=== PATIENT | male | born 1950 | race Hispanic/Latino ===

== ENCOUNTER 2023-08-13 15:17 | Emergency (ER) | payer OTHER ==
--- OUTSIDE RECORDS SUMMARY | 2023-08-13 15:23 | XMS REPORT | Continuity of Care Document ---
:1950 Author Organization Formerly [facility] t Address [address] [place] [address] [place] [id number] Care Team Providers Name Role Phone Evita Teixeira Primary Care Physician [phone] Problems This patient has no known problems. Allergies, Adverse Reactions, Alerts This patient has no known allergies or adverse reactions. Medications Ordered Filled Start Stop Current Ordering Indication Dosage Frequency Signature Comments Components Source Medication Medication Date Date Medication? Clinician (SIG) Name Name Dose 2022-0 No Unknown 1-16 00:00: 00 TAKE 1 2022-0 No 10 TABLET 3 1-16 TIMES DAILY 00:00: NEEDED. 00 IBUPROFEN 2022-0 No 800 MG TABS 1-16 00:00: 00 Dose 2021-0 No Unknown 8-03 00:00: 00 Dose 2021-0 No Unknown 8-03 00:00: 00 Dose 2022-0 No Unknown 8-03 00:00: 00 Dose 2-0 No Unknown 8-03 00:00: 00 Dose 2022-0 No Unknown 8-03 00:00: 00 Dose 2022-0 No Unknown 8-03 00:00: 00 TAKE 1 2021-0 No 10 TABLET 3 7-26 TIMES DAILY 00:00: NEEDED. 00 Dose 2021-0 No Unknown 05-29 00:00: 00 TAKE 1 2021-0 No 10 TABLET 3 7-26 TIMES DAILY 00:00: NEEDED. 00 Dose 2021-0 No Unknown 05-29 00:00: 00 TAKE 1 2021-0 No 10 TABLET 3 7-26 TIMES DAILY 00:00: NEEDED. 00 Dose 2021-0 No Unknown 05-29 00:00: 00 TAKE 1 2021-0 No 800 TABLET 3 7-19 TIMES DAILY 00:00: WITH FOOD 00 NEEDED. TAKE 1 2-0 No 800 TABLET 3 7-19 TIMES DAILY 00:00: WITH FOOD 00 NEEDED. TAKE 1 2-0 No 800 TABLET 3 7-19 TIMES DAILY 00:00: WITH FOOD 00 NEEDED. TAKE 1 2-0 No 10 TABLET 3 7-19 TIMES DAILY 00:00: NEEDED. 00 TAKE 1 2-0 No 800 TABLET 3 7-19 TIMES DAILY 00:00: WITH FOOD 00 NEEDED. TAKE 1 2-0 No 800 TABLET 3 7-19 TIMES DAILY 00:00: WITH FOOD 00 NEEDED. TAKE 1 2-0 No 10 TABLET 3 7-19 TIMES DAILY 00:00: NEEDED. 00 Dose 2021-0 No Unknown 05-22 00:00: 00 TAKE 1 2-0 No 10 TABLET 3 7-19 TIMES DAILY 00:00: NEEDED. 00 TAKE 1 2021-0 No 800 TABLET 3 7-19 TIMES DAILY 00:00: WITH FOOD 00 NEEDED. TAKE 1 2021-0 No 10 TABLET 3 7-19 TIMES DAILY 00:00: NEEDED. 00 Dose 2021-0 No Unknown 19 00:00: 00 TAKE 1 2021-0 No 800 TABLET 3 7-19 TIMES DAILY 00:00: WITH FOOD 00 NEEDED. TAKE 1 2021-0 No 800 TABLET 3 7-19 TIMES DAILY 00:00: WITH FOOD 00 NEEDED. TAKE 1 2-0 No 10 TABLET 3 7-19 TIMES DAILY 00:00: NEEDED. 00 TAKE 1 2-0 No 800 TABLET 3 7-19 TIMES DAILY 00:00: WITH FOOD 00 NEEDED. TAKE 1 2021-0 No 10 TABLET 3 7-19 TIMES DAILY 00:00: NEEDED. 00 Dose 2-0 No Unknown 05-22 00:00: 00 Dose 2022-0 No Unknown 05-01 00:00: 00 Dose 2022-0 No Unknown 05-01 00:00: 00 Dose 2022-0 No Unknown 05-01 00:00: 00 Dose 2022-0 No Unknown 05-01 00:00: 00 Dose 2022-0 No Unknown 05-01 00:00: 00 Dose 2022-0 No Unknown 05-01 00:00: 00 rosuvastati 2-0 No 1mg n 20 mg 3-18 tablet 00:00: 00 rosuvastati 2022-0 No 1mg n 20 mg 3-18 tablet 00:00: 00 rosuvastati 2022-0 No 1mg n 20 mg 3-18 tablet 00:00: 00 valacyclovi 2021-0 No 2mg r 500 mg 3-01 tablet 00:00: 00 valacyclovi 2021-0 No 2mg r 500 mg 3-01 tablet 00:00: 00 valacyclovi 2021-0 No 2mg r 500 mg 3-01 tablet 00:00: 00 rosuvastati 2021-0 No 1mg n 20 mg 2-22 tablet 00:00: 00 rosuvastati 2021-0 No 1mg n 20 mg 2-22 tablet 00:00: 00 rosuvastati 2021-0 No 1mg n 20 mg 2-22 tablet 00:00: 00 rosuvastati 2021-0 No 1mg n 20 mg 2-03 tablet 00:00: 00 rosuvastati 2021-0 No 1mg n 20 mg 2-03 tablet 00:00: 00 rosuvastati 2021-0 No 1mg n 20 mg 2-03 tablet 00:00: 00 chlorthalid 2020-0 No 1mg one 25 mg 8-03 tablet 00:00: 00 rosuvastati 2020-0 No 1mg n 20 mg 8-03 tablet 00:00: 00 chlorthalid 2020-0 No 1mg one 25 mg 8-03 tablet 00:00: 00 rosuvastati 2020-0 No 1mg n 20 mg 8-03 tablet 00:00: 00 chlorthalid 2020-0 No 1mg one 25 mg 8-03 tablet 00:00: 00 rosuvastati 2020-0 No 1mg n 20 mg 8-03 tablet 00:00: 00 rosuvastati 2020-0 No 1mg n 20 mg 2-21 tablet 00:00: 00 rosuvastati 2020-0 No 1mg n 20 mg 2-21 tablet 00:00: 00 rosuvastati 2020-0 No 1mg n 20 mg 2-21 tablet 00:00: 00 rosuvastati 2020-0 No 1mg n 20 mg 1-21 tablet 00:00: 00 rosuvastati 2020-0 No 1mg n 20 mg 1-21 tablet 00:00: 00 rosuvastati 2020-0 No 1mg n 20 mg 1-21 tablet 00:00: 00 Zyrtec 10 2018-0 No 1mg mg capsule 11-19 00:00: 00 Zyrtec 10 2018-0 No 1mg mg capsule 11-19 00:00: 00 Zyrtec 10 2018-0 No 1mg mg capsule 11-19 00:00: 00 Vital Signs Vital Name Observation Time Observation Value Comments Source BP Systolic 2022-11-19 10:23:00 169 mm[Hg] BP Diastolic 2022-11-19 10:23:00 84 mm[Hg] Weight Measured 2022-11-19 10:23:00 194.40 pounds Height Measured 2022-11-19 10:23:00 66.34 inches Body Temperature 2022-11-19 10:23:00 98.00 degrees Heart Rate 2022-11-19 10:23:00 87.00 /min Respiratory Rate 2022-11-19 10:23:00 BP Systolic 2022-11-19 10:08:00 169 mm[Hg] BP Diastolic 2022-11-19 10:08:00 84 mm[Hg] Weight Measured 2022-11-19 10:08:00 194.40 pounds Height Measured 2022-11-19 10:08:00 66.34 inches Body Temperature 2022-11-19 10:08:00 98.00 degrees Heart Rate 2022-11-19 10:08:00 87.00 /min Respiratory Rate 2022-11-19 10:08:00 BP Systolic 2022-06-05 17:13:00 156 mm[Hg] BP Diastolic 2022-06-05 17:13:00 90 mm[Hg] Weight Measured 2022-06-05 17:13:00 192.20 pounds Height Measured 2022-06-05 17:13:00 66.34 inches Body Temperature 2022-06-05 17:13:00 98.30 degrees Heart Rate 2022-06-05 17:13:00 86.00 /min Respiratory Rate 2022-06-05 17:13:00 18.00 /min BP Systolic 2022-05-01 15:35:00 173 mm[Hg] BP Diastolic 2022-05-01 15:35:00 91 mm[Hg] Weight Measured 2022-05-01 15:35:00 192.60 pounds Height Measured 2022-05-01 15:35:00 66.34 inches Body Temperature 2022-05-01 15:35:00 98.00 degrees Heart Rate 2022-05-01 15:35:00 83.00 /min Respiratory Rate 2022-05-01 15:35:00 18.00 /min BP Systolic 2021-12-11 11:18:00 150 mm[Hg] BP Diastolic 2021-12-11 11:18:00 80 mm[Hg] Weight Measured 2021-12-11 11:18:00 188.60 pounds Height Measured 2021-12-11 11:18:00 66.34 inches Body Temperature 2021-12-11 11:18:00 98.00 degrees Heart Rate 2021-12-11 11:18:00 85.00 /min Respiratory Rate 2021-12-11 11:18:00 16.00 /min BP Systolic 2021-06-09 12:14:00 149 mm[Hg] BP Diastolic 2021-06-09 12:14:00 71 mm[Hg] Weight Measured 2021-06-09 12:14:00 17.60 pounds Height Measured 2021-06-09 12:14:00 66.34 inches Body Temperature 2021-06-09 12:14:00 98.60 degrees Heart Rate 2021-06-09 12:14:00 89.00 /min Respiratory Rate 2021-06-09 12:14:00 18.00 /min BP Systolic 2021-06-09 09:11:00 149 mm[Hg] BP Diastolic 2021-06-09 09:11:00 71 mm[Hg] Weight Measured 2021-06-09 09:11:00 187.60 pounds Height Measured 2021-06-09 09:11:00 66.34 inches Body Temperature 2021-06-09 09:11:00 98.60 degrees Heart Rate 2021-06-09 09:11:00 89.00 /min Respiratory Rate 2021-06-09 09:11:00 18.00 /min BP Systolic 2021-01-02 17:17:00 170 mm[Hg] BP Diastolic 2021-01-02 17:17:00 89 mm[Hg] Weight Measured 2021-01-02 17:17:00 195.80 pounds Height Measured 2021-01-02 17:17:00 66.34 inches Body Temperature 2021-01-02 17:17:00 98.60 degrees Heart Rate 2021-01-02 17:17:00 79.00 /min Respiratory Rate 2021-01-02 17:17:00 17.00 /min BP Diastolic 2020-12-26 14:22:00 85 mm[Hg] Weight Measured 2020-12-26 14:22:00 194.40 pounds Height Measured 2020-12-26 14:22:00 66.34 inches Body Temperature 2020-12-26 14:22:00 98.90 degrees Heart Rate 2020-12-26 14:22:00 92.00 /min Respiratory Rate 2020-12-26 14:22:00 18.00 /min BP Systolic 2020-12-26 14:22:00 149 mm[Hg] BP Systolic 2020-12-12 14:19:00 156 mm[Hg] BP Diastolic 2020-12-12 14:19:00 90 mm[Hg] Weight Measured 2020-12-12 14:19:00 198.00 pounds Height Measured 2020-12-12 14:19:00 66.34 inches Body Temperature 2020-12-12 14:19:00 97.90 degrees Heart Rate 2020-12-12 14:19:00 87.00 /min Respiratory Rate 2020-12-12 14:19:00 15.00 /min BP Systolic 2020-06-06 09:09:00 158 mm[Hg] BP Diastolic 2020-06-06 09:09:00 91 mm[Hg] Weight Measured 2020-06-06 09:09:00 193.40 pounds Height Measured 2020-06-06 09:09:00 66.34 inches Body Temperature 2020-06-06 09:09:00 98.40 degrees Heart Rate 2020-06-06 09:09:00 88.00 /min Respiratory Rate 2020-06-06 09:09:00 16.00 /min Procedures This patient has no known procedures. Plan of Care Planned Activity Planned Date Details Comments Source Goal Plan of Care Note [code = 05451-7] Goal Plan of Care Note [code = 22949-6] Goal Plan of Care Note [code = 57721-9] Goal Plan of Care Note [code = 04600-3] Goal Plan of Care Note [code = 58502-7] Goal Plan of Care Note [code = 90466-8] Goal Plan of Care Note [code = 58834-3] Goal Plan of Care Note [code = 98056-2] Goal Plan of Care Note [code = 50110-2] Goal Plan of Care Note [code = 42364-7] Goal Plan of Care Note [code = 53287-7] Goal Plan of Care Note [code = 18051-1] Goal Plan of Care Note [code = 05471-5] Goal Plan of Care Note [code = 39463-8] Goal Plan of Care Note [code = 34404-6] Goal Plan of Care Note [code = 08167-9] Goal Plan of Care Note [code = 62628-2] Goal Plan of Care Note [code = 01782-3] Goal Plan of Care Note [code = 88636-6] Goal Plan of Care Note [code = 36093-3] Goal Plan of Care Note [code = 75937-1] Goal Plan of Care Note [code = 77869-4] Goal Plan of Care Note [code = 40156-9] Goal Plan of Care Note [code = 27160-0] Goal Plan of Care Note [code = 12612-0] Goal Plan of Care Note [code = 01414-4] Goal Plan of Care Note [code = 67060-8] Goal Plan of Care Note [code = 11338-6] Goal Plan of Care Note [code = 79844-7] Goal Plan of Care Note [code = 39287-8] Goal Plan of Care Note [code = 85408-7] Goal Plan of Care Note [code = 78790-9] Goal Plan of Care Note [code = 05839-6] Goal Plan of Care Note [code = 92827-7] Goal Plan of Care Note [code = 34336-5] Goal Plan of Care Note [code = 06542-3] Goal Plan of Care Note [code = 39210-6] Goal Plan of Care Note [code = 11317-3] Goal Plan of Care Note [code = 18468-1] Goal Plan of Care Note [code = 87920-2] Goal Plan of Care Note [code = 60659-6] Goal Plan of Care Note [code = 64060-4] Encounters Start End Encounter Admission Attending Care Care Encounter Source Date/Time Date/Time Type Type Clinicians Facility Department ID 2023-07-31 2023-07-31 Outpatient SFA SFA [id number] [facility] 11:36:53 11:36:53 0927 [facility] 2023-07-24 2023-07-24 Outpatient SFA SFA [id number] [facility] 08:30:30 08:30:30 09 [facility] [place] 2023-07-22 2023-07-22 Outpatient SFA SFA [id number] [facility] 13:57:17 13:57:17 0918 [facility] [place] 2023-05-16 2023-05-16 Outpatient SFA SFA [id number] [facility] 09:38:02 09:38:02 0713 [facility] 2023-04-25 2023-04-25 Outpatient SFA SFA [id number] [facility] 08:45:13 08:45:13 06 [facility] 2023-04-18 2023-04-18 Outpatient SFA SFA [id number] [facility] 08:04:13 08:04:13 0615 [facility] 2023-04-17 2023-04-17 Outpatient SFA SFA [id number] [facility] 11:16:20 11:16:20 0614 [facility] 2023-04-08 2023-04-08 Outpatient SFA SFA [id number] [facility] 10:52:03 10:52:03 0605 [facility] 2023-04-02 2023-04-02 Outpatient SFA SFA [id number] [facility] 08:12:50 08:12:50 05 [facility] 2023-03-26 2023-03-26 Outpatient SFA SFA [id number] [facility] 15:18:45 15:18:45 0523 [facility] 2023-02-25 2023-02-25 Outpatient SFA SFA [id number] [facility] 11:14:30 11:14:30 0424 [facility] 2022-12-31 2022-12-31 Outpatient SFA SFA [id number] [facility] 08:10:12 08:10:12 7 [facility] 2022-11-26 2022-11-26 Outpatient SFA SFA [id number] [facility] 09:44:23 09:44:23 0123 [place] 2022-11-19 2022-11-19 Outpatient SFA SFA [id number] [facility] 10:00:42 10:00:42 0116 [facility] [place] 2022-11-19 2022-11-19 Outpatient [id number] 00:00:00 00:00:00 Visit 56ba-4ffa [id number]-4ffa-a -[id number]-1ab [id number] 071aaf 2022-06-05 2022-06-05 Outpatient [id number] 00:00:00 00:00:00 Visit 83k9-1oh0 [id number] -[id number] [id number] 2022-05-01 2022-05-01 Outpatient [id number] 00:00:00 00:00:00 Visit [id number]-a -[id number] 112-3fec2d [id number] Results Test Description Test Time Test Comments Results Result Comments Source UREA NITROGEN, URINE, 24 HR 2023-07-26 17:49:26 Test Item Value Reference Range Interpretation Comme nts UREA NITROGEN, CONC. (test 529 mg/dL code = 25579) UREA NITROGEN, 24 HR (test 8.2 g/d 12.0-20.0 L code = 87521) CREATININE, URINE, CONC. (test 64 mg/dL code = 09079) CREATININE, URINE, 24 HR (test 992 mg/d 800-2100 code = 02584) HOURS OF COLLECTION (test code 24 = 21788) TOTAL URINE VOLUME (test code 1550 TESTING PERFORMED AT [facility] = [address]) [facility], [address] [place]. [id number] CLIA NO. [id number] UNLESS OTHERWISE INDIC ATED, ALL TESTING PERFORMED AT [facility], [facility]. [address] [place] [address] 4 SUBSTATION OPERATOR HELPER: FRANK ESTEBAN M.D. CLIA NUMBER [id number] [place] ACCREDITATION N O. [id number] VITAMIN D, 25 [id number] 10:38:18 Test Item Value Reference Range Interpretation Comments VITAMIN D, 25 34 NG/ML SEE BELOW EFFECTIVE 11/12/2022, [place] (test code PLEASE NOTE NE W METHODOLOGY = 4958) IS ELECTROC EMILUMINESCENCE BINDING ASSAY. NOTE: 25-HYDROXYVITAM IN D ASSAY INCLUDES 25-HYD ROXYVITAMIN D2 AND D3. I NTERPRETIVE RANGES PED IATRIC (<17 YEARS) . . . . . . . . . . . NG/ML 20-100ADU LT: INSUFFICIENT . . . . . . . . . . . . . . NG/ML <20 SUBOP TIMAL . . . . . . . . . . . . . . . NG/ML 20-29 OPTIMAL . . . . . . . . . . . . . . . . . NG/ML 30-100 TSH, THIRD [id number] 09:42:22 Test Item Value Reference Range Interpretation Comments TSH, THIRD GENERATION (test code 1.980 UIU/ML 0.400-4.100 = 2821) INTACT [id number] 06:41:20 Test Item Value Reference Range Interpretation Comments INTACT PTH (test 61 PG/ML 15-65 UNLESS OTH ERWISE code = 5005) INDICATED, ALL TESTING PERFORMED AT [facility] [address] [place] [address] DIRECTOR: Gurvinder AYOUB KIANA NUMBER [id number] [facility] ACCREDITATION N O. [id number] COMPREHENSIVE METABOLIC [id number] 04:01:27 Test Item Value Reference Range Interpretation Comments GLUCOSE (test code = 115 MG/DL 70-99 H 2216) BUN (test code = 15 MG/DL 8-23 2207) CREATININE (test 0.88 MG/DL 0.80-1.40 code = 2214) eGFR (2020 CKD-EPI) 93 ML/MIN/1.73 >60 (test code = 64784) CALC BUN/CREAT (test 17 RATIO 6-28 code = 2235) SODIUM (test code = 142 MEQ/L 049-635 9416) POTASSIUM (test code 4.6 MEQ/L 3.5-5.4 = 2228) CHLORIDE (test code 105 MEQ/L 95-107 = 2215) CARBON DIOXIDE (test 23 MEQ/L 19-31 code = 2206) CALCIUM (test code = 9.9 MG/DL 8.5-10.5 2208) PROTEIN, TOTAL (test 7.2 G/DL 6.1-8.3 code = 2229) ALBUMIN (test code = 4.8 G/DL 3.5-5.2 2200) CALC GLOBULIN (test 2.4 G/DL 1.9-3.7 code = 2240) CALC A/G RATIO (test 2.0 RATIO 1.0-2.6 code = 2234) BILIRUBIN, TOTAL 1.4 MG/DL See_Comment H [Automated message] (test code = 220) The syste m which generated this result transmit amos reference range : <=1.2. The refe rence range was not u sed to interpret th is result as normal/abnormal . ALKALINE PHOSPHATASE 457 U/L 40-125 H (test code = 2203) AST (test code = 18 U/L 9-50 2217) ALT (test code = 20 U/L 5-50 2218) [id number] 03:41:22 Test Item Value Reference Range Interpretation Comments GGT (test code = 22 U/L <60 UNLESS OTH ERWISE INDICATED, 2216) ALL TESTING PER FORMED AT CLINICAL [facility], [place] [address] LABORATORY DIRE CTOR: LETICIA BOND M.D. CLIA NUMBER [id number] [place] ACCREDITATION N O. [id number] HEPATITIS PANEL, [id number] 06:51:28 Test Item Value Reference Interpretation Comments Range HEPATITIS A TOTAL REACTIVE NON-REACTIVE A AB (test code = 2725) HEPATITIS B SURF AG NON-REACTIVE NON-REACTIVE (test code = 2739) HEP B CORE TOTAL AB NON-REACTIVE NON-REACTIVE (test code = 2729) HEPATITIS B SURFACE NON-REACTIVE NON-REACTIVE AB (test code = 2737) HEPATITIS C NON-REACTIVE NON-REACTIVE ANTIBODY (test code = 4675) INTERPRETATION (NOTE) Hepatitis A serology HEPATITIS A: (test consisten t with past code = 8162) exposure or previousvaccina tion to hepatitis A vir us. No evidence of cur rent acutehepatitis A infection. INTERPRETATION (NOTE) Hepatitis B serology HEPATITIS B: (test shows no evidence of code = 99948) past exposure to orcurrent infec tion with hepatitis B vir us. No evidence of hep atitis Bimmunization i s identified. INTERPRETATION (NOTE) Hepatitis C serology HEPATITIS C: (test shows no evidence of code = 49266) exposure to he patitisC virus at this t ursz[place]. It can take up to 12 months after exposure tothe hepatitis C vir us for antibodies to b ecome detectable in t he blood in certain vilma ents. HEPATITIS A [id number] 06:51:28 Test Item Value Reference Range Interpretation Comments HEPATITIS A IgM NON-REACTIVE NON-REACTIVE UNLESS OTHE RWISE (test code = 2728) INDICATED , ALL TESTING PERFORMED AT [facility], [facility]. [address] [place] [address] [employer] DIRECTOR: Gurvinder AYOUB KIANA NUMBER [id number] [place] ACCREDITATION N O. [id number] LIPID [id number] 03:45:26 Test Item Value Reference Range Interpretation Comments CHOLESTEROL (test 160 MG/DL <200 code = 2210) TRIGLYCERIDES (test 212 MG/DL <150 H code = 2232) HDL CHOLESTEROL (test 47 MG/DL >39 code = 2220) CALC LDL CHOL (test 82 MG/DL <100 NOTE: C ALCULATED LDL code = 2237) IS BASED ON VU-HENLEY METHOD WHICHINCLUDES ADJUSTABLE TRIGLYCERIDE:VL DL CHOLESTEROL RAT IO.THIS FACTOR VARIES B Y MEASURED TRIGLY CERIDE AND NON-HDLCHOL ESTEROL CONCENTRATIONS WITH INCREASED CALCU LATED LDL SEENIN HIGH ER TRIGLYCERIDE OR LOWER NON-HDL SPECIME NS. FOR MOREINFORMATION , SEE CLIENT ANNOUNCE MENT AT [email or web address] [email or web address] RATIO LDL/HDL 1.74 RATIO <3.55 (test code = 2238) COMPREHENSIVE METABOLIC [id number] 03:45:26 Test Item Value Reference Range Interpretation Comments GLUCOSE (test code = 112 MG/DL 70-99 H 2216) BUN (test code = 13 MG/DL 8-23 2207) CREATININE (test 0.84 MG/DL 0.80-1.40 code = 2214) eGFR (2020 CKD-EPI) 94 ML/MIN/1.73 >60 (test code = 56776) CALC BUN/CREAT (test 15 RATIO 6-28 code = 223) SODIUM (test code = 141 MEQ/L 390-135 2480) POTASSIUM (test code 4.6 MEQ/L 3.5-5.4 = 2227) CHLORIDE (test code 101 MEQ/L 95-107 = 2214) CARBON DIOXIDE (test 27 MEQ/L 19-31 code = 2205) CALCIUM (test code = 9.7 MG/DL 8.5-10.5 2208) PROTEIN, TOTAL (test 7.3 G/DL 6.1-8.3 code = 2228) ALBUMIN (test code = 5.0 G/DL 3.5-5.2 2200) CALC GLOBULIN (test 2.3 G/DL 1.9-3.7 code = 2239) CALC A/G RATIO (test 2.2 RATIO 1.0-2.6 code = 2233) BILIRUBIN, TOTAL 1.1 MG/DL See_Comment [Automated message] (test code = 2206) The [employer] which generated this result transmit amos reference range : <=1.2. The refe rence range was not u sed to interpret th is result as normal/abnormal . ALKALINE PHOSPHATASE 450 U/L 40-125 H (test code = 2203) AST (test code = 19 U/L 9-50 2217) ALT (test code = 28 U/L 5-50 2218) HEMOGLOBIN [id number] 02:31:40 Test Item Value Reference Range Interpretation Comments HEMOGLOBIN A1c (test 6.2 % 4.2-5.6 H AMERIC AN DIABETES code = 49119) ASSOCIATION IDELINES FOR HGB A1C: PREDIABETES/INC REASED RISK . . . . . . . 5.7 -6.4% DIAGNOSIS OF DI ABETES . . . . . . . . . >=6 .5% WITH CONFIRMATION OR APPROPRIATE SYMPTOMS NOTE: ASSAY MAY BE AFFECTED BY HEMOGLOBINOPATH IES (SICKLE CELL ANEMIA, S- C DISEASE, OTHERS) OR JACEK FICIALLY LOWERED BY DECR EASED RED CELL SURVIVAL ( HEMOLYTIC ANEMIAS, BLOOD LOSS, ETC.). CONSIDER ALTERN ATE TESTING OR LABORATORY C ONSULTATION. CBC W/AUTO DIFF WITH [id number] 02:20:58 Test Item Value Reference Range Interpretation Comments WBC (test code = 5.1 K/UL 3.5-11.0 1001) RBC (test code = 4.84 M/UL 4.50-6.10 1002) HEMOGLOBIN (test code 14.5 G/DL 13.5-17.0 = 1003) HEMATOCRIT (test code 42.5 % 40.0-51.0 = 1004) MCV (test code = 87.8 fL 80.0-99.0 1005) MCH (test code = 30.0 PG 25.0-33.0 1006) MCHC (test code = 34.1 G/DL 31.0-36.0 1007) RDW (test code = 13.7 % 11.5-15.0 1038) NEUTROPHILS (test 50.7 % code = 1008) LYMPHOCYTES (test 37.2 % code = 1010) MONOCYTES (test code 7.9 % = 1011) EOSINOPHILS (test 2.8 % code = 1012) BASOPHILS (test code 1.0 % = 1013) IMMATURE GRANULOCYTES 0.4 % (test code = 1036) NUCLEATED RBCS (test 0.0 /100 WBC'S See_Comment [Aut omated code = 1065) message] The sy stem which generated this result transmitted reference range : 0.0. The refere nce range was not u sed to interpret th is result as normal/abnormal . PLATELET COUNT (test 262 K/UL 130-400 code = 1015) ABSOLUTE NEUTROPHILS 2.58 K/UL 1.50-7.50 (test code = 1066) ABSOLUTE LYMPHOCYTES 1.89 K/UL 1.00-4.00 (test code = 1067) ABSOLUTE MONOCYTES 0.40 K/UL 0.20-1.00 (test code = 1068) ABSOLUTE EOSINOPHILS 0.14 K/UL 0.00-0.50 (test code = 1040) ABSOLUTE BASOPHILS 0.05 K/UL 0.00-0.20 (test code = 1069) ABS IMMATURE 0.02 K/UL 0.00-0.10 GRANULOCYTES (test code = 1020) ABS NUCLEATED RBCS 0.00 K/UL 0.00-0.11 (test code = 24017) LIPID [id number] 04:59:38 Test Item Value Reference Range Interpretation Comments CHOLESTEROL (test 150 MG/DL <200 code = 2210) TRIGLYCERIDES (test 143 MG/DL <150 code = 2232) HDL CHOLESTEROL (test 47 MG/DL >39 code = 2220) CALC LDL CHOL (test 79 MG/DL <100 NOTE: C ALCULATED LDL code = 2237) IS BASED ON VU-HENLEY METHOD WHICHINCLUDES ADJUSTABLE TRIGLYCERIDE:VL DL CHOLESTEROL RAT IO.THIS FACTOR VARIES B Y MEASURED TRIGLY CERIDE AND NON-HDLCHOL ESTEROL CONCENTRATIONS WITH INCREASED CALCU LATED LDL SEENIN HIGH ER TRIGLYCERIDE OR LOWER NON-HDL SPECIME NS. FOR MOREINFORMATION , SEE CLIENT ANNOUNCE MENT AT [email or web address] RISK RATIO LDL/HDL 1.68 RATIO <3.55 UNLESS O THERWISE (test code = 2238) INDICATED , ALL TESTING PERFORMED [facility], [facility]. [address] [place] [id number] [facility] DIRECTOR: JANNIE GARCIA M.D. CLIA NUMBER [id number] CAP ACCREDITATION N O. [id number] HEMOGLOBIN [id number] 04:35:04 Test Item Value Reference Range Interpretation Comments HEMOGLOBIN A1c (test code = 81077) 6.0 % 4.2-5.6 H HEMOGLOBIN A1c [ADDED]2022-06-07 00:00:00 Test Item Value Reference Range Interpretation Comments HEMOGLOBIN A1c (test code = 88476) 6.0 % LIPID PANEL [ADDED]2022-06-07 00:00:00 Test Item Value Reference Range Interpretation Comments CHOLESTEROL (test code = 2210) 150 MG/DL TRIGLYCERIDES (test code = 2232) 143 MG/DL HDL CHOLESTEROL (test code = 2220) 47 MG/DL CALC LDL CHOL (test code = 2237) 79 MG/DL RISK RATIO LDL/HDL (test code = 1.68 RATIO 2238) LIPID PANEL [ADDED]2022-06-07 00:00:00 Test Item Value Reference Range Interpretation Comments CHOLESTEROL (test code = 2210) 150 MG/DL TRIGLYCERIDES (test code = 2232) 143 MG/DL HDL CHOLESTEROL (test code = 2220) 47 MG/DL CALC LDL CHOL (test code = 2237) 79 MG/DL RISK RATIO LDL/HDL (test code = 1.68 RATIO 2238) HEMOGLOBIN A1c [ADDED]2022-06-07 00:00:00 Test Item Value Reference Range Interpretation Comments HEMOGLOBIN A1c (test code = 06089) 6.0 % HEMOGLOBIN A1c [ADDED]2022-06-07 00:00:00 Test Item Value Reference Range Interpretation Comments HEMOGLOBIN A1c (test code = 37926) 6.0 % HEMOGLOBIN A1c [ADDED]2022-06-07 00:00:00 Test Item Value Reference Range Interpretation Comments HEMOGLOBIN A1c (test code = 97436) 6.0 % LIPID PANEL [ADDED]2022-06-07 00:00:00 Test Item Value Reference Range Interpretation Comments CHOLESTEROL (test code = 2210) 150 MG/DL TRIGLYCERIDES (test code = 2232) 143 MG/DL HDL CHOLESTEROL (test code = 2220) 47 MG/DL CALC LDL CHOL (test code = 2237) 79 MG/DL RISK RATIO LDL/HDL (test code = 1.68 RATIO 2238) LIPID PANEL [ADDED]2022-06-07 00:00:00 Test Item Value Reference Range Interpretation Comments CHOLESTEROL (test code = 2210) 150 MG/DL TRIGLYCERIDES (test code = 2232) 143 MG/DL HDL CHOLESTEROL (test code = 2220) 47 MG/DL CALC LDL CHOL (test code = 2237) 79 MG/DL RISK RATIO LDL/HDL (test code = 1.68 RATIO 2238) HEMOGLOBIN A1c [ADDED]2022-06-07 00:00:00 Test Item Value Reference Range Interpretation Comments HEMOGLOBIN A1c (test code = 80447) 6.0 % HEMOGLOBIN A1c [ADDED]2022-06-07 00:00:00 Test Item Value Reference Range Interpretation Comments HEMOGLOBIN A1c (test code = 43195) 6.0 % COMPREHENSIVE METABOLIC [id number] 07:38:44 Test Item Value Reference Range Interpretation Comments GLUCOSE (test code = 99 MG/DL 70-99 2216) BUN (test code = 18 MG/DL 8-23 2207) CREATININE (test 0.96 MG/DL 0.80-1.40 code = 2214) eGFR (2020 CKD-EPI) 86 ML/MIN/1.73 >60 (test code = 04081) CALC BUN/CREAT (test 19 RATIO 6-28 code = 2235) SODIUM (test code = 143 MEQ/L 059-063 7731) POTASSIUM (test code 4.5 MEQ/L 3.5-5.4 = 2228) CHLORIDE (test code 102 MEQ/L 95-107 = 2215) CARBON DIOXIDE (test 24 MEQ/L 19-31 code = 2206) CALCIUM (test code = 9.5 MG/DL 8.5-10.5 2208) PROTEIN, TOTAL (test 7.4 G/DL 6.1-8.3 code = 2229) ALBUMIN (test code = 5.0 G/DL 3.5-5.2 2200) CALC GLOBULIN (test 2.4 G/DL 1.9-3.7 code = 2240) CALC A/G RATIO (test 2.1 RATIO 1.0-2.6 code = 2234) BILIRUBIN, TOTAL 1.4 MG/DL See_Comment H [Automated message] (test code = 220) The syste m which generated this result transmit amos reference range : <=1.2. The refe rence range was not u sed to interpret th is result as normal/abnormal . ALKALINE PHOSPHATASE 190 U/L 40-125 H (test code = 220) AST (test code = 19 U/L 9-50 2217) ALT (test code = 34 U/L 5-50 2218) LIPID [id number] 07:38:44 Test Item Value Reference Range Interpretation Comments CHOLESTEROL (test 146 MG/DL <200 code = 2210) TRIGLYCERIDES (test 232 MG/DL <150 H code = 2232) HDL CHOLESTEROL (test 43 MG/DL >39 code = 2220) CALC LDL CHOL (test 71 MG/DL <100 NOTE: C ALCULATED LDL code = 2237) IS BASED ON VU-HENLEY METHOD WHICHINCLUDES ADJUSTABLE TRIGLYCERIDE:VL DL CHOLESTEROL RAT IO.THIS FACTOR VARIES B Y MEASURED TRIGLY CERIDE AND NON-HDLCHOL ESTEROL CONCENTRATIONS WITH INCREASED CALCU LATED LDL SEENIN HIGH ER TRIGLYCERIDE OR LOWER NON-HDL SPECIME NS. FOR MOREINFORMATION , SEE CLIENT ANNOUNCE MENT AT [email or web address] [email or web address] RATIO LDL/HDL 1.65 RATIO <3.55 UNLESS O THERWISE (test code = 223) INDICATED , ALL TESTING PERFORMED [facility], [address] [place] [address] [facility] DIRECTOR: JANNIE GARCIA M.D. CLIA NUMBER [id number] CAP ACCREDITATION N O. [id number] HEMOGLOBIN [id number] 05:38:37 Test Item Value Reference Range Interpretation Comments HEMOGLOBIN A1c (test code = 56303) 6.0 % 4.2-5.6 H CBC W/AUTO DIFF WITH [id number] 05:08:46 Test Item Value Reference Range Interpretation Comments WBC (test code = 6.3 K/UL 3.5-11.0 1001) RBC (test code = 4.77 M/UL 4.50-6.10 1002) HEMOGLOBIN (test code 14.5 G/DL 13.5-17.0 = 1003) HEMATOCRIT (test code 42.0 % 40.0-51.0 = 1004) MCV (test code = 88.1 fL 80.0-99.0 1005) MCH (test code = 30.4 PG 25.0-33.0 1006) MCHC (test code = 34.5 G/DL 31.0-36.0 1007) RDW (test code = 13.5 % 11.5-15.0 1038) NEUTROPHILS (test 55.3 % code = 1008) LYMPHOCYTES (test 34.0 % code = 1010) MONOCYTES (test code 8.1 % = 1011) EOSINOPHILS (test 1.7 % code = 1012) BASOPHILS (test code 0.6 % = 1013) IMMATURE GRANULOCYTES 0.3 % (test code = 1036) NUCLEATED RBCS (test 0.0 /100 WBC'S See_Comment [Aut omated code = 1065) message] The sy stem which generated this result transmitted reference range : 0.0. The refere nce range was not u sed to interpret th is result as normal/abnormal . PLATELET COUNT (test 226 K/UL 130-400 code = 1015) ABSOLUTE NEUTROPHILS 3.49 K/UL 1.50-7.50 (test code = 1066) ABSOLUTE LYMPHOCYTES 2.15 K/UL 1.00-4.00 (test code = 1067) ABSOLUTE MONOCYTES 0.51 K/UL 0.20-1.00 (test code = 1068) ABSOLUTE EOSINOPHILS 0.11 K/UL 0.00-0.50 (test code = 1040) ABSOLUTE BASOPHILS 0.04 K/UL 0.00-0.20 (test code = 1069) ABS IMMATURE 0.02 K/UL 0.00-0.10 GRANULOCYTES (test code = 1020) ABS NUCLEATED RBCS 0.00 K/UL 0.00-0.11 (test code = 46011) CBC W/AUTO [id number] 00:00:00 Test Item Value Reference Range Interpretation Comments WBC (test code = 1001) 6.3 K/UL RBC (test code = 1002) 4.77 M/UL HEMOGLOBIN (test code = 1003) 14.5 G/DL HEMATOCRIT (test code = 1004) 42.0 % MCV (test code = 1005) 88.1 fL MCH (test code = 1006) 30.4 PG MCHC (test code = 1007) 34.5 G/DL RDW (test code = 1038) 13.5 % NEUTROPHILS (test code = 1008) 55.3 % LYMPHOCYTES (test code = 1010) 34.0 % MONOCYTES (test code = 1011) 8.1 % EOSINOPHILS (test code = 1012) 1.7 % BASOPHILS (test code = 1013) 0.6 % IMMATURE GRANULOCYTES (test 0.3 % code = 1036) NUCLEATED RBCS (test code = 0.0 /100WBC'S 1065) PLATELET COUNT (test code = 226 K/UL 1015) ABSOLUTE NEUTROPHILS (test code 3.49 K/UL = 1066) ABSOLUTE LYMPHOCYTES (test code 2.15 K/UL = 1067) ABSOLUTE MONOCYTES (test code = 0.51 K/UL 1068) ABSOLUTE EOSINOPHILS (test code 0.11 K/UL = 1040) ABSOLUTE BASOPHILS (test code = 0.04 K/UL 1069) ABS IMMATURE GRANULOCYTES (test 0.02 K/UL code = 1020) ABS NUCLEATED RBCS (test code = 0.00 K/UL 46335) COMPREHENSIVE METABOLIC [id number] 00:00:00 Test Item Value Reference Range Interpretation Comments GLUCOSE (test code = 2217) 99 MG/DL BUN (test code = 2208) 18 MG/DL CREATININE (test code = 2214) 0.96 MG/DL eGFR (2020 CKD-EPI) (test code 86 ML/MIN/1.73 = 71358) CALC BUN/CREAT (test code = 19 RATIO 2235) SODIUM (test code = 2231) 143 MEQ/L POTASSIUM (test code = 2228) 4.5 MEQ/L CHLORIDE (test code = 2215) 102 MEQ/L CARBON DIOXIDE (test code = 24 MEQ/L 2206) CALCIUM (test code = 2209) 9.5 MG/DL PROTEIN, TOTAL (test code = 7.4 G/DL 2229) ALBUMIN (test code = 2201) 5.0 G/DL CALC GLOBULIN (test code = 2.4 G/DL 2240) CALC A/G RATIO (test code = 2.1 RATIO 2234) BILIRUBIN, TOTAL (test code = 1.4 MG/DL 220) ALKALINE PHOSPHATASE (test 190 U/L code = 2204) AST (test code = 2218) 19 U/L ALT (test code = 2219) 34 U/L COMPREHENSIVE METABOLIC [id number] 00:00:00 Test Item Value Reference Range Interpretation Comments GLUCOSE (test code = 2217) 99 MG/DL BUN (test code = 2208) 18 MG/DL CREATININE (test code = 2214) 0.96 MG/DL eGFR (2020 CKD-EPI) (test code 86 ML/MIN/1.73 = 16853) CALC BUN/CREAT (test code = 19 RATIO 2235) SODIUM (test code = 2231) 143 MEQ/L POTASSIUM (test code = 2228) 4.5 MEQ/L CHLORIDE (test code = 2215) 102 MEQ/L CARBON DIOXIDE (test code = 24 MEQ/L 6) CALCIUM (test code = 2209) 9.5 MG/DL PROTEIN, TOTAL (test code = 7.4 G/DL 2228) ALBUMIN (test code = 2201) 5.0 G/DL CALC GLOBULIN (test code = 2.4 G/DL 2240) CALC A/G RATIO (test code = 2.1 RATIO 2234) BILIRUBIN, TOTAL (test code = 1.4 MG/DL 2207) ALKALINE PHOSPHATASE (test 190 U/L code = 2204) AST (test code = 2218) 19 U/L ALT (test code = 2219) 34 U/L HEMOGLOBIN [id number] 00:00:00 Test Item Value Reference Range Interpretation Comments HEMOGLOBIN A1c (test code = 08472) 6.0 % HEMOGLOBIN [id number] 00:00:00 Test Item Value Reference Range Interpretation Comments HEMOGLOBIN A1c (test code = 57459) 6.0 % HEMOGLOBIN [id number] 00:00:00 Test Item Value Reference Range Interpretation Comments HEMOGLOBIN A1c (test code = 05231) 6.0 % LIPID [id number] 00:00:00 Test Item Value Reference Range Interpretation Comments CHOLESTEROL (test code = 2210) 146 MG/DL TRIGLYCERIDES (test code = 2232) 232 MG/DL HDL CHOLESTEROL (test code = 2220) 43 MG/DL CALC LDL CHOL (test code = 2237) 71 MG/DL RISK RATIO LDL/HDL (test code = 1.65 RATIO 2238) LIPID [id number] 00:00:00 Test Item Value Reference Range Interpretation Comments CHOLESTEROL (test code = 2210) 146 MG/DL TRIGLYCERIDES (test code = 2232) 232 MG/DL HDL CHOLESTEROL (test code = 2220) 43 MG/DL CALC LDL CHOL (test code = 2237) 71 MG/DL RISK RATIO LDL/HDL (test code = 1.65 RATIO 2238) CBC W/AUTO [id number] 00:00:00 Test Item Value Reference Range Interpretation Comments WBC (test code = 1001) 6.3 K/UL RBC (test code = 1002) 4.77 M/UL HEMOGLOBIN (test code = 1003) 14.5 G/DL HEMATOCRIT (test code = 1004) 42.0 % MCV (test code = 1005) 88.1 fL MCH (test code = 1006) 30.4 PG MCHC (test code = 1007) 34.5 G/DL RDW (test code = 1038) 13.5 % NEUTROPHILS (test code = 1008) 55.3 % LYMPHOCYTES (test code = 1010) 34.0 % MONOCYTES (test code = 1011) 8.1 % EOSINOPHILS (test code = 1012) 1.7 % BASOPHILS (test code = 1013) 0.6 % IMMATURE GRANULOCYTES (test 0.3 % code = 1036) NUCLEATED RBCS (test code = 0.0 /100WBC'S 1065) PLATELET COUNT (test code = 226 K/UL 1015) ABSOLUTE NEUTROPHILS (test code 3.49 K/UL = 1066) ABSOLUTE LYMPHOCYTES (test code 2.15 K/UL = 1067) ABSOLUTE MONOCYTES (test code = 0.51 K/UL 1068) ABSOLUTE EOSINOPHILS (test code 0.11 K/UL = 1040) ABSOLUTE BASOPHILS (test code = 0.04 K/UL 1069) ABS IMMATURE GRANULOCYTES (test 0.02 K/UL code = 1020) ABS NUCLEATED RBCS (test code = 0.00 K/UL 80799) CBC W/AUTO [id number] 00:00:00 Test Item Value Reference Range Interpretation Comments WBC (test code = 1001) 6.3 K/UL RBC (test code = 1002) 4.77 M/UL HEMOGLOBIN (test code = 1003) 14.5 G/DL HEMATOCRIT (test code = 1004) 42.0 % MCV (test code = 1005) 88.1 fL MCH (test code = 1006) 30.4 PG MCHC (test code = 1007) 34.5 G/DL RDW (test code = 1038) 13.5 % NEUTROPHILS (test code = 1008) 55.3 % LYMPHOCYTES (test code = 1010) 34.0 % MONOCYTES (test code = 1011) 8.1 % EOSINOPHILS (test code = 1012) 1.7 % BASOPHILS (test code = 1013) 0.6 % IMMATURE GRANULOCYTES (test 0.3 % code = 1036) NUCLEATED RBCS (test code = 0.0 /100WBC'S 1065) PLATELET COUNT (test code = 226 K/UL 1015) ABSOLUTE NEUTROPHILS (test code 3.49 K/UL = 1066) ABSOLUTE LYMPHOCYTES (test code 2.15 K/UL = 1067) ABSOLUTE MONOCYTES (test code = 0.51 K/UL 1068) ABSOLUTE EOSINOPHILS (test code 0.11 K/UL = 1040) ABSOLUTE BASOPHILS (test code = 0.04 K/UL 1069) ABS IMMATURE GRANULOCYTES (test 0.02 K/UL code = 1020) ABS NUCLEATED RBCS (test code = 0.00 K/UL 03413) CBC W/AUTO [id number] 00:00:00 Test Item Value Reference Range Interpretation Comments WBC (test code = 1001) 6.3 K/UL RBC (test code = 1002) 4.77 M/UL HEMOGLOBIN (test code = 1003) 14.5 G/DL HEMATOCRIT (test code = 1004) 42.0 % MCV (test code = 1005) 88.1 fL MCH (test code = 1006) 30.4 PG MCHC (test code = 1007) 34.5 G/DL RDW (test code = 1038) 13.5 % NEUTROPHILS (test code = 1008) 55.3 % LYMPHOCYTES (test code = 1010) 34.0 % MONOCYTES (test code = 1011) 8.1 % EOSINOPHILS (test code = 1012) 1.7 % BASOPHILS (test code = 1013) 0.6 % IMMATURE GRANULOCYTES (test 0.3 % code = 1036) NUCLEATED RBCS (test code = 0.0 /100WBC'S 1065) PLATELET COUNT (test code = 226 K/UL 1015) ABSOLUTE NEUTROPHILS (test code 3.49 K/UL = 1066) ABSOLUTE LYMPHOCYTES (test code 2.15 K/UL = 1067) ABSOLUTE MONOCYTES (test code = 0.51 K/UL 1068) ABSOLUTE EOSINOPHILS (test code 0.11 K/UL = 1040) ABSOLUTE BASOPHILS (test code = 0.04 K/UL 1069) ABS IMMATURE GRANULOCYTES (test 0.02 K/UL code = 1020) ABS NUCLEATED RBCS (test code = 0.00 K/UL 41294) COMPREHENSIVE METABOLIC [id number] 00:00:00 Test Item Value Reference Range Interpretation Comments GLUCOSE (test code = 2217) 99 MG/DL BUN (test code = 2208) 18 MG/DL CREATININE (test code = 2214) 0.96 MG/DL eGFR (2020 CKD-EPI) (test code 86 ML/MIN/1.73 = 81174) CALC BUN/CREAT (test code = 19 RATIO 2235) SODIUM (test code = 2231) 143 MEQ/L POTASSIUM (test code = 2228) 4.5 MEQ/L CHLORIDE (test code = 2215) 102 MEQ/L CARBON DIOXIDE (test code = 24 MEQ/L 2206) CALCIUM (test code = 2209) 9.5 MG/DL PROTEIN, TOTAL (test code = 7.4 G/DL 222) ALBUMIN (test code = 2201) 5.0 G/DL CALC GLOBULIN (test code = 2.4 G/DL 2240) CALC A/G RATIO (test code = 2.1 RATIO 2234) BILIRUBIN, TOTAL (test code = 1.4 MG/DL 220) ALKALINE PHOSPHATASE (test 190 U/L code = 2204) AST (test code = 2218) 19 U/L ALT (test code = 2219) 34 U/L COMPREHENSIVE METABOLIC [id number] 00:00:00 Test Item Value Reference Range Interpretation Comments GLUCOSE (test code = 2217) 99 MG/DL BUN (test code = 2208) 18 MG/DL CREATININE (test code = 2214) 0.96 MG/DL eGFR (2020 CKD-EPI) (test code 86 ML/MIN/1.73 = 39561) CALC BUN/CREAT (test code = 19 RATIO 2235) SODIUM (test code = 2231) 143 MEQ/L POTASSIUM (test code = 2228) 4.5 MEQ/L CHLORIDE (test code = 2215) 102 MEQ/L CARBON DIOXIDE (test code = 24 MEQ/L 2205) CALCIUM (test code = 2209) 9.5 MG/DL PROTEIN, TOTAL (test code = 7.4 G/DL 2228) ALBUMIN (test code = 220) 5.0 G/DL CALC GLOBULIN (test code = 2.4 G/DL 2239) CALC A/G RATIO (test code = 2.1 RATIO 2233) BILIRUBIN, TOTAL (test code = 1.4 MG/DL 2206) ALKALINE PHOSPHATASE (test 190 U/L code = 2204) AST (test code = 2218) 19 U/L ALT (test code = 2219) 34 U/L HEMOGLOBIN [id number] 00:00:00 Test Item Value Reference Range Interpretation Comments HEMOGLOBIN A1c (test code = 23449) 6.0 % HEMOGLOBIN [id number] 00:00:00 Test Item Value Reference Range Interpretation Comments HEMOGLOBIN A1c (test code = 41657) 6.0 % HEMOGLOBIN [id number] 00:00:00 Test Item Value Reference Range Interpretation Comments HEMOGLOBIN A1c (test code = 32420) 6.0 % LIPID [id number] 00:00:00 Test Item Value Reference Range Interpretation Comments CHOLESTEROL (test code = 2210) 146 MG/DL TRIGLYCERIDES (test code = 2232) 232 MG/DL HDL CHOLESTEROL (test code = 2220) 43 MG/DL CALC LDL CHOL (test code = 2237) 71 MG/DL RISK RATIO LDL/HDL (test code = 1.65 RATIO 2238) LIPID [id number] 00:00:00 Test Item Value Reference Range Interpretation Comments CHOLESTEROL (test code = 2210) 146 MG/DL TRIGLYCERIDES (test code = 2232) 232 MG/DL HDL CHOLESTEROL (test code = 2220) 43 MG/DL CALC LDL CHOL (test code = 2237) 71 MG/DL RISK RATIO LDL/HDL (test code = 1.65 RATIO 2238) CBC W/AUTO [id number] 00:00:00 Test Item Value Reference Range Interpretation Comments WBC (test code = 1001) 6.3 K/UL RBC (test code = 1002) 4.77 M/UL HEMOGLOBIN (test code = 1003) 14.5 G/DL HEMATOCRIT (test code = 1004) 42.0 % MCV (test code = 1005) 88.1 fL MCH (test code = 1006) 30.4 PG MCHC (test code = 1007) 34.5 G/DL RDW (test code = 1038) 13.5 % NEUTROPHILS (test code = 1008) 55.3 % LYMPHOCYTES (test code = 1010) 34.0 % MONOCYTES (test code = 1011) 8.1 % EOSINOPHILS (test code = 1012) 1.7 % BASOPHILS (test code = 1013) 0.6 % IMMATURE GRANULOCYTES (test 0.3 % code = 1036) NUCLEATED RBCS (test code = 0.0 /100WBC'S 1065) PLATELET COUNT (test code = 226 K/UL 1015) ABSOLUTE NEUTROPHILS (test code 3.49 K/UL = 1066) ABSOLUTE LYMPHOCYTES (test code 2.15 K/UL = 1067) ABSOLUTE MONOCYTES (test code = 0.51 K/UL 1068) ABSOLUTE EOSINOPHILS (test code 0.11 K/UL = 1040) ABSOLUTE BASOPHILS (test code = 0.04 K/UL 1069) ABS IMMATURE GRANULOCYTES (test 0.02 K/UL code = 1020) ABS NUCLEATED RBCS (test code = 0.00 K/UL 22002) CBC W/AUTO [id number] 00:00:00 Test Item Value Reference Range Interpretation Comments WBC (test code = 1001) 6.3 K/UL RBC (test code = 1002) 4.77 M/UL HEMOGLOBIN (test code = 1003) 14.5 G/DL HEMATOCRIT (test code = 1004) 42.0 % MCV (test code = 1005) 88.1 fL MCH (test code = 1006) 30.4 PG MCHC (test code = 1007) 34.5 G/DL RDW (test code = 1038) 13.5 % NEUTROPHILS (test code = 1008) 55.3 % LYMPHOCYTES (test code = 1010) 34.0 % MONOCYTES (test code = 1011) 8.1 % EOSINOPHILS (test code = 1012) 1.7 % BASOPHILS (test code = 1013) 0.6 % IMMATURE GRANULOCYTES (test 0.3 % code = 1036) NUCLEATED RBCS (test code = 0.0 /100WBC'S 1065) PLATELET COUNT (test code = 226 K/UL 1015) ABSOLUTE NEUTROPHILS (test code 3.49 K/UL = 1066) ABSOLUTE LYMPHOCYTES (test code 2.15 K/UL = 1067) ABSOLUTE MONOCYTES (test code = 0.51 K/UL 1068) ABSOLUTE EOSINOPHILS (test code 0.11 K/UL = 1040) ABSOLUTE BASOPHILS (test code = 0.04 K/UL 1069) ABS IMMATURE GRANULOCYTES (test 0.02 K/UL code = 1020) ABS NUCLEATED RBCS (test code = 0.00 K/UL 75083) COMPREHENSIVE METABOLIC [id number] 00:00:00 Test Item Value Reference Range Interpretation Comments GLUCOSE (test code = 2217) 99 MG/DL BUN (test code = 2208) 18 MG/DL CREATININE (test code = 2214) 0.96 MG/DL eGFR (2020 CKD-EPI) (test code 86 ML/MIN/1.73 = 02540) CALC BUN/CREAT (test code = 19 RATIO 2235) SODIUM (test code = 2231) 143 MEQ/L POTASSIUM (test code = 2228) 4.5 MEQ/L CHLORIDE (test code = 2215) 102 MEQ/L CARBON DIOXIDE (test code = 24 MEQ/L 2205) CALCIUM (test code = 2209) 9.5 MG/DL PROTEIN, TOTAL (test code = 7.4 G/DL 2228) ALBUMIN (test code = 2201) 5.0 G/DL CALC GLOBULIN (test code = 2.4 G/DL 2240) CALC A/G RATIO (test code = 2.1 RATIO 2234) BILIRUBIN, TOTAL (test code = 1.4 MG/DL 2206) ALKALINE PHOSPHATASE (test 190 U/L code = 2204) AST (test code = 2218) 19 U/L ALT (test code = 2219) 34 U/L HEMOGLOBIN [id number] 00:00:00 Test Item Value Reference Range Interpretation Comments HEMOGLOBIN A1c (test code = 57491) 6.0 % HEMOGLOBIN [id number] 00:00:00 Test Item Value Reference Range Interpretation Comments HEMOGLOBIN A1c (test code = 01545) 6.0 % LIPID [id number] 00:00:00 Test Item Value Reference Range Interpretation Comments CHOLESTEROL (test code = 2210) 146 MG/DL TRIGLYCERIDES (test code = 2232) 232 MG/DL HDL CHOLESTEROL (test code = 2220) 43 MG/DL CALC LDL CHOL (test code = 2237) 71 MG/DL RISK RATIO LDL/HDL (test code = 1.65 RATIO 2238) CBC W/AUTO [id number] 00:00:00 Test Item Value Reference Range Interpretation Comments WBC (test code = 1001) 6.3 K/UL RBC (test code = 1002) 4.77 M/UL HEMOGLOBIN (test code = 1003) 14.5 G/DL HEMATOCRIT (test code = 1004) 42.0 % MCV (test code = 1005) 88.1 fL MCH (test code = 1006) 30.4 PG MCHC (test code = 1007) 34.5 G/DL RDW (test code = 1038) 13.5 % NEUTROPHILS (test code = 1008) 55.3 % LYMPHOCYTES (test code = 1010) 34.0 % MONOCYTES (test code = 1011) 8.1 % EOSINOPHILS (test code = 1012) 1.7 % BASOPHILS (test code = 1013) 0.6 % IMMATURE GRANULOCYTES (test 0.3 % code = 1036) NUCLEATED RBCS (test code = 0.0 /100WBC'S 1065) PLATELET COUNT (test code = 226 K/UL 1015) ABSOLUTE NEUTROPHILS (test code 3.49 K/UL = 1066) ABSOLUTE LYMPHOCYTES (test code 2.15 K/UL = 1067) ABSOLUTE MONOCYTES (test code = 0.51 K/UL 1068) ABSOLUTE EOSINOPHILS (test code 0.11 K/UL = 1040) ABSOLUTE BASOPHILS (test code = 0.04 K/UL 1069) ABS IMMATURE GRANULOCYTES (test 0.02 K/UL code = 1020) ABS NUCLEATED RBCS (test code = 0.00 K/UL 21569) CBC W/AUTO [id number] 00:00:00 Test Item Value Reference Range Interpretation Comments WBC (test code = 1001) 6.3 K/UL RBC (test code = 1002) 4.77 M/UL HEMOGLOBIN (test code = 1003) 14.5 G/DL HEMATOCRIT (test code = 1004) 42.0 % MCV (test code = 1005) 88.1 fL MCH (test code = 1006) 30.4 PG MCHC (test code = 1007) 34.5 G/DL RDW (test code = 1038) 13.5 % NEUTROPHILS (test code = 1008) 55.3 % LYMPHOCYTES (test code = 1010) 34.0 % MONOCYTES (test code = 1011) 8.1 % EOSINOPHILS (test code = 1012) 1.7 % BASOPHILS (test code = 1013) 0.6 % IMMATURE GRANULOCYTES (test 0.3 % code = 1036) NUCLEATED RBCS (test code = 0.0 /100WBC'S 1065) PLATELET COUNT (test code = 226 K/UL 1015) ABSOLUTE NEUTROPHILS (test code 3.49 K/UL = 1066) ABSOLUTE LYMPHOCYTES (test code 2.15 K/UL = 1067) ABSOLUTE MONOCYTES (test code = 0.51 K/UL 1068) ABSOLUTE EOSINOPHILS (test code 0.11 K/UL = 1040) ABSOLUTE BASOPHILS (test code = 0.04 K/UL 1069) ABS IMMATURE GRANULOCYTES (test 0.02 K/UL code = 1020) ABS NUCLEATED RBCS (test code = 0.00 K/UL 20956) HEMOGLOBIN [id number] 00:00:00 Test Item Value Reference Range Interpretation Comments HEMOGLOBIN A1c (test code = 97319) 6.0 % HEMOGLOBIN [id number] 00:00:00 Test Item Value Reference Range Interpretation Comments HEMOGLOBIN A1c (test code = 05067) 6.0 % HEMOGLOBIN [id number] 00:00:00 Test Item Value Reference Range Interpretation Comments HEMOGLOBIN A1c (test code = 34417) 6.0 % HEMOGLOBIN [id number] 00:00:00 Test Item Value Reference Range Interpretation Comments HEMOGLOBIN A1c (test code = 00622) 6.0 % HEMOGLOBIN [id number] 00:00:00 Test Item Value Reference Range Interpretation Comments HEMOGLOBIN A1c (test code = 95458) 6.0 % HEMOGLOBIN [id number] 00:00:00 Test Item Value Reference Range Interpretation Comments HEMOGLOBIN A1c (test code = 02962) 6.0 % HEMOGLOBIN [id number] 00:00:00 Test Item Value Reference Range Interpretation Comments HEMOGLOBIN A1c (test code = 17524) 6.0 % HEMOGLOBIN [id number] 00:00:00 Test Item Value Reference Range Interpretation Comments HEMOGLOBIN A1c (test code = 11841) 6.0 % CBC W/AUTO [id number] 00:00:00 Test Item Value Reference Range Interpretation Comments WBC (test code = 1001) 8.5 K/UL RBC (test code = 1002) 5.10 M/UL HEMOGLOBIN (test code = 1003) 14.9 G/DL HEMATOCRIT (test code = 1004) 43.6 % MCV (test code = 1005) 85.5 fL MCH (test code = 1006) 29.2 PG MCHC (test code = 1007) 34.2 G/DL RDW (test code = 1038) 13.2 % NEUTROPHILS (test code = 1008) 60.4 % LYMPHOCYTES (test code = 1010) 30.6 % MONOCYTES (test code = 1011) 7.2 % EOSINOPHILS (test code = 1012) 1.3 % BASOPHILS (test code = 1013) 0.5 % PLATELET COUNT (test code = 1015) 266 K/UL CBC W/AUTO [id number] 00:00:00 Test Item Value Reference Range Interpretation Comments WBC (test code = 1001) 8.5 K/UL RBC (test code = 1002) 5.10 M/UL HEMOGLOBIN (test code = 1003) 14.9 G/DL HEMATOCRIT (test code = 1004) 43.6 % MCV (test code = 1005) 85.5 fL MCH (test code = 1006) 29.2 PG MCHC (test code = 1007) 34.2 G/DL RDW (test code = 1038) 13.2 % NEUTROPHILS (test code = 1008) 60.4 % LYMPHOCYTES (test code = 1010) 30.6 % MONOCYTES (test code = 1011) 7.2 % EOSINOPHILS (test code = 1012) 1.3 % BASOPHILS (test code = 1013) 0.5 % PLATELET COUNT (test code = 1015) 266 K/UL COMPREHENSIVE METABOLIC [id number] 00:00:00 Test Item Value Reference Range Interpretation Comments GLUCOSE (test code = 2217) 108 MG/DL BUN (test code = 2208) 19 MG/DL CREATININE (test code = 2214) 0.91 MG/DL eGFR AMER. (test code 100 ML/MIN/1.73 = 47912) eGFR NON- AMER. (test 86 ML/MIN/1.73 code = 82544) CALC BUN/CREAT (test code = 21 RATIO 2235) SODIUM (test code = 2231) 142 MEQ/L POTASSIUM (test code = 2228) 4.3 MEQ/L CHLORIDE (test code = 2215) 103 MEQ/L CARBON DIOXIDE (test code = 27 MEQ/L 220) CALCIUM (test code = 2209) 9.9 MG/DL PROTEIN, TOTAL (test code = 7.6 G/DL 2228) ALBUMIN (test code = 2201) 5.1 G/DL CALC GLOBULIN (test code = 2.5 G/DL 2240) CALC A/G RATIO (test code = 2.0 RATIO 2234) BILIRUBIN, TOTAL (test code = 1.3 MG/DL 2206) ALKALINE PHOSPHATASE (test 104 U/L code = 2204) AST (test code = 2218) 22 U/L ALT (test code = 2219) 26 U/L COMPREHENSIVE METABOLIC [id number] 00:00:00 Test Item Value Reference Range Interpretation Comments GLUCOSE (test code = 2217) 108 MG/DL BUN (test code = 2208) 19 MG/DL CREATININE (test code = 2214) 0.91 MG/DL eGFR AMER. (test code 100 ML/MIN/1.73 = 84149) eGFR NON- AMER. (test 86 ML/MIN/1.73 code = 23732) CALC BUN/CREAT (test code = 21 RATIO 2235) SODIUM (test code = 2231) 142 MEQ/L POTASSIUM (test code = 2228) 4.3 MEQ/L CHLORIDE (test code = 2215) 103 MEQ/L CARBON DIOXIDE (test code = 27 MEQ/L 2206) CALCIUM (test code = 2209) 9.9 MG/DL PROTEIN, TOTAL (test code = 7.6 G/DL 2228) ALBUMIN (test code = 2201) 5.1 G/DL CALC GLOBULIN (test code = 2.5 G/DL 2240) CALC A/G RATIO (test code = 2.0 RATIO 2234) BILIRUBIN, TOTAL (test code = 1.3 MG/DL 2206) ALKALINE PHOSPHATASE (test 104 U/L code = 2204) AST (test code = 2218) 22 U/L ALT (test code = 2219) 26 U/L LIPID [id number] 00:00:00 Test Item Value Reference Range Interpretation Comments CHOLESTEROL (test code = 2210) 130 MG/DL TRIGLYCERIDES (test code = 2232) 292 MG/DL HDL CHOLESTEROL (test code = 2220) 39 MG/DL CALC LDL CHOL (test code = 2237) 57 MG/DL RISK RATIO LDL/HDL (test code = 1.46 RATIO 2238) LIPID [id number] 00:00:00 Test Item Value Reference Range Interpretation Comments CHOLESTEROL (test code = 2210) 130 MG/DL TRIGLYCERIDES (test code = 2232) 292 MG/DL HDL CHOLESTEROL (test code = 2220) 39 MG/DL CALC LDL CHOL (test code = 2237) 57 MG/DL RISK RATIO LDL/HDL (test code = 1.46 RATIO 2238) HEMOGLOBIN [id number] 00:00:00 Test Item Value Reference Range Interpretation Comments HEMOGLOBIN A1c (test code = 84270) 6.3 % HEMOGLOBIN [id number] 00:00:00 Test Item Value Reference Range Interpretation Comments HEMOGLOBIN A1c (test code = 01332) 6.3 % HEMOGLOBIN [id number] 00:00:00 Test Item Value Reference Range Interpretation Comments HEMOGLOBIN A1c (test code = 23261) 6.3 % HEPATITIS C [id number] 00:00:00 Test Item Value Reference Range Interpretation Comments HEPATITIS C ANTIBODY (test code NON-REACTIVE = 4675) HEPATITIS C [id number] 00:00:00 Test Item Value Reference Range Interpretation Comments HEPATITIS C ANTIBODY (test code NON-REACTIVE = 4675) CBC W/AUTO [id number] 00:00:00 Test Item Value Reference Range Interpretation Comments WBC (test code = 1001) 8.5 K/UL RBC (test code = 1002) 5.10 M/UL HEMOGLOBIN (test code = 1003) 14.9 G/DL HEMATOCRIT (test code = 1004) 43.6 % MCV (test code = 1005) 85.5 fL MCH (test code = 1006) 29.2 PG MCHC (test code = 1007) 34.2 G/DL RDW (test code = 1038) 13.2 % NEUTROPHILS (test code = 1008) 60.4 % LYMPHOCYTES (test code = 1010) 30.6 % MONOCYTES (test code = 1011) 7.2 % EOSINOPHILS (test code = 1012) 1.3 % BASOPHILS (test code = 1013) 0.5 % PLATELET COUNT (test code = 1015) 266 K/UL CBC W/AUTO [id number] 00:00:00 Test Item Value Reference Range Interpretation Comments WBC (test code = 1001) 8.5 K/UL RBC (test code = 1002) 5.10 M/UL HEMOGLOBIN (test code = 1003) 14.9 G/DL HEMATOCRIT (test code = 1004) 43.6 % MCV (test code = 1005) 85.5 fL MCH (test code = 1006) 29.2 PG MCHC (test code = 1007) 34.2 G/DL RDW (test code = 1038) 13.2 % NEUTROPHILS (test code = 1008) 60.4 % LYMPHOCYTES (test code = 1010) 30.6 % MONOCYTES (test code = 1011) 7.2 % EOSINOPHILS (test code = 1012) 1.3 % BASOPHILS (test code = 1013) 0.5 % PLATELET COUNT (test code = 1015) 266 K/UL CBC W/AUTO [id number] 00:00:00 Test Item Value Reference Range Interpretation Comments WBC (test code = 1001) 8.5 K/UL RBC (test code = 1002) 5.10 M/UL HEMOGLOBIN (test code = 1003) 14.9 G/DL HEMATOCRIT (test code = 1004) 43.6 % MCV (test code = 1005) 85.5 fL MCH (test code = 1006) 29.2 PG MCHC (test code = 1007) 34.2 G/DL RDW (test code = 1038) 13.2 % NEUTROPHILS (test code = 1008) 60.4 % LYMPHOCYTES (test code = 1010) 30.6 % MONOCYTES (test code = 1011) 7.2 % EOSINOPHILS (test code = 1012) 1.3 % BASOPHILS (test code = 1013) 0.5 % PLATELET COUNT (test code = 1015) 266 K/UL CBC W/AUTO [id number] 00:00:00 Test Item Value Reference Range Interpretation Comments WBC (test code = 1001) 8.5 K/UL RBC (test code = 1002) 5.10 M/UL HEMOGLOBIN (test code = 1003) 14.9 G/DL HEMATOCRIT (test code = 1004) 43.6 % MCV (test code = 1005) 85.5 fL MCH (test code = 1006) 29.2 PG MCHC (test code = 1007) 34.2 G/DL RDW (test code = 1038) 13.2 % NEUTROPHILS (test code = 1008) 60.4 % LYMPHOCYTES (test code = 1010) 30.6 % MONOCYTES (test code = 1011) 7.2 % EOSINOPHILS (test code = 1012) 1.3 % BASOPHILS (test code = 1013) 0.5 % PLATELET COUNT (test code = 1015) 266 K/UL COMPREHENSIVE METABOLIC [id number] 00:00:00 Test Item Value Reference Range Interpretation Comments GLUCOSE (test code = 2217) 108 MG/DL BUN (test code = 2208) 19 MG/DL CREATININE (test code = 2214) 0.91 MG/DL eGFR AMER. (test code 100 ML/MIN/1.73 = 31956) eGFR NON- AMER. (test 86 ML/MIN/1.73 code = 71459) CALC BUN/CREAT (test code = 21 RATIO 2235) SODIUM (test code = 2231) 142 MEQ/L POTASSIUM (test code = 2228) 4.3 MEQ/L CHLORIDE (test code = 2215) 103 MEQ/L CARBON DIOXIDE (test code = 27 MEQ/L 2205) CALCIUM (test code = 2209) 9.9 MG/DL PROTEIN, TOTAL (test code = 7.6 G/DL 2228) ALBUMIN (test code = 2201) 5.1 G/DL CALC GLOBULIN (test code = 2.5 G/DL 2240) CALC A/G RATIO (test code = 2.0 RATIO 2234) BILIRUBIN, TOTAL (test code = 1.3 MG/DL 2206) ALKALINE PHOSPHATASE (test 104 U/L code = 2204) AST (test code = 2218) 22 U/L ALT (test code = 2219) 26 U/L COMPREHENSIVE METABOLIC [id number] 00:00:00 Test Item Value Reference Range Interpretation Comments GLUCOSE (test code = 2217) 108 MG/DL BUN (test code = 2208) 19 MG/DL CREATININE (test code = 2214) 0.91 MG/DL eGFR AMER. (test code 100 ML/MIN/1.73 = 49709) eGFR NON- AMER. (test 86 ML/MIN/1.73 code = 10345) CALC BUN/CREAT (test code = 21 RATIO 2235) SODIUM (test code = 2231) 142 MEQ/L POTASSIUM (test code = 2228) 4.3 MEQ/L CHLORIDE (test code = 2215) 103 MEQ/L CARBON DIOXIDE (test code = 27 MEQ/L 2205) CALCIUM (test code = 2209) 9.9 MG/DL PROTEIN, TOTAL (test code = 7.6 G/DL 2228) ALBUMIN (test code = 2201) 5.1 G/DL CALC GLOBULIN (test code = 2.5 G/DL 2239) CALC A/G RATIO (test code = 2.0 RATIO 2233) BILIRUBIN, TOTAL (test code = 1.3 MG/DL 2206) ALKALINE PHOSPHATASE (test 104 U/L code = 2204) AST (test code = 2218) 22 U/L ALT (test code = 2219) 26 U/L CBC W/AUTO [id number] 00:00:00 Test Item Value Reference Range Interpretation Comments WBC (test code = 1001) 8.5 K/UL RBC (test code = 1002) 5.10 M/UL HEMOGLOBIN (test code = 1003) 14.9 G/DL HEMATOCRIT (test code = 1004) 43.6 % MCV (test code = 1005) 85.5 fL MCH (test code = 1006) 29.2 PG MCHC (test code = 1007) 34.2 G/DL RDW (test code = 1038) 13.2 % NEUTROPHILS (test code = 1008) 60.4 % LYMPHOCYTES (test code = 1010) 30.6 % MONOCYTES (test code = 1011) 7.2 % EOSINOPHILS (test code = 1012) 1.3 % BASOPHILS (test code = 1013) 0.5 % PLATELET COUNT (test code = 1015) 266 K/UL LIPID [id number] 00:00:00 Test Item Value Reference Range Interpretation Comments CHOLESTEROL (test code = 2210) 130 MG/DL TRIGLYCERIDES (test code = 2232) 292 MG/DL HDL CHOLESTEROL (test code = 2220) 39 MG/DL CALC LDL CHOL (test code = 2237) 57 MG/DL RISK RATIO LDL/HDL (test code = 1.46 RATIO 2238) LIPID [id number] 00:00:00 Test Item Value Reference Range Interpretation Comments CHOLESTEROL (test code = 2210) 130 MG/DL TRIGLYCERIDES (test code = 2232) 292 MG/DL HDL CHOLESTEROL (test code = 2220) 39 MG/DL CALC LDL CHOL (test code = 2237) 57 MG/DL RISK RATIO LDL/HDL (test code = 1.46 RATIO 2238) HEMOGLOBIN [id number] 00:00:00 Test Item Value Reference Range Interpretation Comments HEMOGLOBIN A1c (test code = 70087) 6.3 % HEMOGLOBIN [id number] 00:00:00 Test Item Value Reference Range Interpretation Comments HEMOGLOBIN A1c (test code = 26972) 6.3 % HEMOGLOBIN [id number] 00:00:00 Test Item Value Reference Range Interpretation Comments HEMOGLOBIN A1c (test code = 93785) 6.3 % HEPATITIS C [id number] 00:00:00 Test Item Value Reference Range Interpretation Comments HEPATITIS C ANTIBODY (test code NON-REACTIVE = 4675) HEPATITIS C [id number] 00:00:00 Test Item Value Reference Range Interpretation Comments HEPATITIS C ANTIBODY (test code NON-REACTIVE = 4675) COMPREHENSIVE METABOLIC [id number] 00:00:00 Test Item Value Reference Range Interpretation Comments GLUCOSE (test code = 2217) 108 MG/DL BUN (test code = 2208) 19 MG/DL CREATININE (test code = 2214) 0.91 MG/DL eGFR AMER. (test code 100 ML/MIN/1.73 = 99611) eGFR NON- AMER. (test 86 ML/MIN/1.73 code = 49647) CALC BUN/CREAT (test code = 21 RATIO 2235) SODIUM (test code = 2231) 142 MEQ/L POTASSIUM (test code = 2228) 4.3 MEQ/L CHLORIDE (test code = 2215) 103 MEQ/L CARBON DIOXIDE (test code = 27 MEQ/L 2205) CALCIUM (test code = 2209) 9.9 MG/DL PROTEIN, TOTAL (test code = 7.6 G/DL 2228) ALBUMIN (test code = 2201) 5.1 G/DL CALC GLOBULIN (test code = 2.5 G/DL 2240) CALC A/G RATIO (test code = 2.0 RATIO 2234) BILIRUBIN, TOTAL (test code = 1.3 MG/DL 2207) ALKALINE PHOSPHATASE (test 104 U/L code = 2204) AST (test code = 2218) 22 U/L ALT (test code = 2219) 26 U/L LIPID [id number] 00:00:00 Test Item Value Reference Range Interpretation Comments CHOLESTEROL (test code = 2210) 130 MG/DL TRIGLYCERIDES (test code = 2232) 292 MG/DL HDL CHOLESTEROL (test code = 2220) 39 MG/DL CALC LDL CHOL (test code = 2237) 57 MG/DL RISK RATIO LDL/HDL (test code = 1.46 RATIO 2238) HEMOGLOBIN [id number] 00:00:00 Test Item Value Reference Range Interpretation Comments HEMOGLOBIN A1c (test code = 45721) 6.3 % HEMOGLOBIN [id number] 00:00:00 Test Item Value Reference Range Interpretation Comments HEMOGLOBIN A1c (test code = 29948) 6.3 % HEPATITIS C [id number] 00:00:00 Test Item Value Reference Range Interpretation Comments HEPATITIS C ANTIBODY (test code NON-REACTIVE = 4675) CBC W/AUTO [id number] 00:00:00 Test Item Value Reference Range Interpretation Comments WBC (test code = 1001) 8.5 K/UL RBC (test code = 1002) 5.10 M/UL HEMOGLOBIN (test code = 1003) 14.9 G/DL HEMATOCRIT (test code = 1004) 43.6 % MCV (test code = 1005) 85.5 fL MCH (test code = 1006) 29.2 PG MCHC (test code = 1007) 34.2 G/DL RDW (test code = 1038) 13.2 % NEUTROPHILS (test code = 1008) 60.4 % LYMPHOCYTES (test code = 1010) 30.6 % MONOCYTES (test code = 1011) 7.2 % EOSINOPHILS (test code = 1012) 1.3 % BASOPHILS (test code = 1013) 0.5 % PLATELET COUNT (test code = 1015) 266 K/UL LIPID [id number] 00:00:00 Test Item Value Reference Range Interpretation Comments CHOLESTEROL (test code = 2210) 147 MG/DL TRIGLYCERIDES (test code = 2232) 189 MG/DL HDL CHOLESTEROL (test code = 2220) 46 MG/DL CALC LDL CHOL (test code = 2237) 73 MG/DL RISK RATIO LDL/HDL (test code = 1.59 RATIO 2238) LIPID [id number] 00:00:00 Test Item Value Reference Range Interpretation Comments CHOLESTEROL (test code = 2210) 147 MG/DL TRIGLYCERIDES (test code = 2232) 189 MG/DL HDL CHOLESTEROL (test code = 2220) 46 MG/DL CALC LDL CHOL (test code = 2237) 73 MG/DL RISK RATIO LDL/HDL (test code = 1.59 RATIO 2238) COMPREHENSIVE METABOLIC [id number] 00:00:00 Test Item Value Reference Range Interpretation Comments GLUCOSE (test code = 2217) 121 MG/DL BUN (test code = 2208) 16 MG/DL CREATININE (test code = 2214) 0.95 MG/DL eGFR AMER. (test code 96 ML/MIN/1.73 = 74339) eGFR NON- AMER. (test 82 ML/MIN/1.73 code = 43469) CALC BUN/CREAT (test code = 17 RATIO 2235) SODIUM (test code = 2231) 142 MEQ/L POTASSIUM (test code = 2228) 4.7 MEQ/L CHLORIDE (test code = 2215) 103 MEQ/L CARBON DIOXIDE (test code = 24 MEQ/L 220) CALCIUM (test code = 2209) 9.7 MG/DL PROTEIN, TOTAL (test code = 7.6 G/DL 2228) ALBUMIN (test code = 2201) 5.1 G/DL CALC GLOBULIN (test code = 2.5 G/DL 2240) CALC A/G RATIO (test code = 2.0 RATIO 2234) BILIRUBIN, TOTAL (test code = 1.5 MG/DL 2206) ALKALINE PHOSPHATASE (test 87 U/L code = 2204) AST (test code = 2218) 20 U/L ALT (test code = 2219) 24 U/L COMPREHENSIVE METABOLIC [id number] 00:00:00 Test Item Value Reference Range Interpretation Comments GLUCOSE (test code = 2217) 121 MG/DL BUN (test code = 2208) 16 MG/DL CREATININE (test code = 2214) 0.95 MG/DL eGFR AMER. (test code 96 ML/MIN/1.73 = 88325) eGFR NON- AMER. (test 82 ML/MIN/1.73 code = 60224) CALC BUN/CREAT (test code = 17 RATIO 2235) SODIUM (test code = 2231) 142 MEQ/L POTASSIUM (test code = 2228) 4.7 MEQ/L CHLORIDE (test code = 2215) 103 MEQ/L CARBON DIOXIDE (test code = 24 MEQ/L 2205) CALCIUM (test code = 2209) 9.7 MG/DL PROTEIN, TOTAL (test code = 7.6 G/DL 2228) ALBUMIN (test code = 2201) 5.1 G/DL CALC GLOBULIN (test code = 2.5 G/DL 2239) CALC A/G RATIO (test code = 2.0 RATIO 2233) BILIRUBIN, TOTAL (test code = 1.5 MG/DL 2206) ALKALINE PHOSPHATASE (test 87 U/L code = 2204) AST (test code = 2218) 20 U/L ALT (test code = 2219) 24 U/L HEMOGLOBIN [id number] 00:00:00 Test Item Value Reference Range Interpretation Comments HEMOGLOBIN A1c (test code = 16759) 6.0 % HEMOGLOBIN [id number] 00:00:00 Test Item Value Reference Range Interpretation Comments HEMOGLOBIN A1c (test code = 89604) 6.0 % HEMOGLOBIN [id number] 00:00:00 Test Item Value Reference Range Interpretation Comments HEMOGLOBIN A1c (test code = 87110) 6.0 % LIPID [id number] 00:00:00 Test Item Value Reference Range Interpretation Comments CHOLESTEROL (test code = 2210) 147 MG/DL TRIGLYCERIDES (test code = 2232) 189 MG/DL HDL CHOLESTEROL (test code = 2220) 46 MG/DL CALC LDL CHOL (test code = 2237) 73 MG/DL RISK RATIO LDL/HDL (test code = 1.59 RATIO 2238) LIPID [id number] 00:00:00 Test Item Value Reference Range Interpretation Comments CHOLESTEROL (test code = 2210) 147 MG/DL TRIGLYCERIDES (test code = 2232) 189 MG/DL HDL CHOLESTEROL (test code = 2220) 46 MG/DL CALC LDL CHOL (test code = 2237) 73 MG/DL RISK RATIO LDL/HDL (test code = 1.59 RATIO 2238) COMPREHENSIVE METABOLIC [id number] 00:00:00 Test Item Value Reference Range Interpretation Comments GLUCOSE (test code = 2217) 121 MG/DL BUN (test code = 2208) 16 MG/DL CREATININE (test code = 2214) 0.95 MG/DL eGFR AMER. (test code 96 ML/MIN/1.73 = 63520) eGFR NON- AMER. (test 82 ML/MIN/1.73 code = 52257) CALC BUN/CREAT (test code = 17 RATIO 2235) SODIUM (test code = 2231) 142 MEQ/L POTASSIUM (test code = 2228) 4.7 MEQ/L CHLORIDE (test code = 2215) 103 MEQ/L CARBON DIOXIDE (test code = 24 MEQ/L 220) CALCIUM (test code = 2209) 9.7 MG/DL PROTEIN, TOTAL (test code = 7.6 G/DL 2228) ALBUMIN (test code = 2201) 5.1 G/DL CALC GLOBULIN (test code = 2.5 G/DL 2240) CALC A/G RATIO (test code = 2.0 RATIO 2234) BILIRUBIN, TOTAL (test code = 1.5 MG/DL 2206) ALKALINE PHOSPHATASE (test 87 U/L code = 2204) AST (test code = 2218) 20 U/L ALT (test code = 2219) 24 U/L COMPREHENSIVE METABOLIC [id number] 00:00:00 Test Item Value Reference Range Interpretation Comments GLUCOSE (test code = 2217) 121 MG/DL BUN (test code = 2208) 16 MG/DL CREATININE (test code = 2214) 0.95 MG/DL eGFR AMER. (test code 96 ML/MIN/1.73 = 15198) eGFR NON- AMER. (test 82 ML/MIN/1.73 code = 01386) CALC BUN/CREAT (test code = 17 RATIO 2235) SODIUM (test code = 2231) 142 MEQ/L POTASSIUM (test code = 2228) 4.7 MEQ/L CHLORIDE (test code = 2215) 103 MEQ/L CARBON DIOXIDE (test code = 24 MEQ/L 2206) CALCIUM (test code = 2209) 9.7 MG/DL PROTEIN, TOTAL (test code = 7.6 G/DL 2228) ALBUMIN (test code = 2201) 5.1 G/DL CALC GLOBULIN (test code = 2.5 G/DL 2240) CALC A/G RATIO (test code = 2.0 RATIO 2234) BILIRUBIN, TOTAL (test code = 1.5 MG/DL 2206) ALKALINE PHOSPHATASE (test 87 U/L code = 2204) AST (test code = 2218) 20 U/L ALT (test code = 2219) 24 U/L HEMOGLOBIN [id number] 00:00:00 Test Item Value Reference Range Interpretation Comments HEMOGLOBIN A1c (test code = 22396) 6.0 % HEMOGLOBIN [id number] 00:00:00 Test Item Value Reference Range Interpretation Comments HEMOGLOBIN A1c (test code = 63149) 6.0 % HEMOGLOBIN [id number] 00:00:00 Test Item Value Reference Range Interpretation Comments HEMOGLOBIN A1c (test code = 77685) 6.0 % LIPID [id number] 00:00:00 Test Item Value Reference Range Interpretation Comments CHOLESTEROL (test code = 2210) 147 MG/DL TRIGLYCERIDES (test code = 2232) 189 MG/DL HDL CHOLESTEROL (test code = 2220) 46 MG/DL CALC LDL CHOL (test code = 2237) 73 MG/DL RISK RATIO LDL/HDL (test code = 1.59 RATIO 2238) COMPREHENSIVE METABOLIC [id number] 00:00:00 Test Item Value Reference Range Interpretation Comments GLUCOSE (test code = 2217) 121 MG/DL BUN (test code = 2208) 16 MG/DL CREATININE (test code = 2214) 0.95 MG/DL eGFR AMER. (test code 96 ML/MIN/1.73 = 02763) eGFR NON- AMER. (test 82 ML/MIN/1.73 code = 96501) CALC BUN/CREAT (test code = 17 RATIO 2235) SODIUM (test code = 2231) 142 MEQ/L POTASSIUM (test code = 2228) 4.7 MEQ/L CHLORIDE (test code = 2215) 103 MEQ/L CARBON DIOXIDE (test code = 24 MEQ/L 2205) CALCIUM (test code = 2209) 9.7 MG/DL PROTEIN, TOTAL (test code = 7.6 G/DL 2228) ALBUMIN (test code = 2201) 5.1 G/DL CALC GLOBULIN (test code = 2.5 G/DL 2240) CALC A/G RATIO (test code = 2.0 RATIO 2234) BILIRUBIN, TOTAL (test code = 1.5 MG/DL 2206) ALKALINE PHOSPHATASE (test 87 U/L code = 2204) AST (test code = 2218) 20 U/L ALT (test code = 2219) 24 U/L HEMOGLOBIN [id number] 00:00:00 Test Item Value Reference Range Interpretation Comments HEMOGLOBIN A1c (test code = 33389) 6.0 % HEMOGLOBIN [id number] 00:00:00 Test Item Value Reference Range Interpretation Comments HEMOGLOBIN A1c (test code = 80214) 6.0 % LIPID [id number] 00:00:00 Test Item Value Reference Range Interpretation Comments CHOLESTEROL (test code = 2210) 191 MG/DL TRIGLYCERIDES (test code = 2232) 366 MG/DL HDL CHOLESTEROL (test code = 2220) 45 MG/DL CALC LDL CHOL (test code = 2237) 73 MG/DL RISK RATIO LDL/HDL (test code = 1.62 RATIO 2238) COMPREHENSIVE METABOLIC PANEL [ADDED]2019-12-03 00:00:00 Test Item Value Reference Range Interpretation Comments GLUCOSE (test code = 2217) 121 MG/DL BUN (test code = 2208) 14 MG/DL CREATININE (test code = 2214) 0.90 MG/DL eGFR AMER. (test code 102 ML/MIN/1.73 = 90176) eGFR NON- AMER. (test 88 ML/MIN/1.73 code = 64369) CALC BUN/CREAT (test code = 16 RATIO 2235) SODIUM (test code = 2231) 144 MEQ/L POTASSIUM (test code = 2228) 4.4 MEQ/L CHLORIDE (test code = 2215) 102 MEQ/L CARBON DIOXIDE (test code = 29 MEQ/L 2205) CALCIUM (test code = 220) 10.0 MG/DL PROTEIN, TOTAL (test code = 7.8 G/DL 2228) ALBUMIN (test code = 2201) 5.3 G/DL CALC GLOBULIN (test code = 2.5 G/DL 2240) CALC A/G RATIO (test code = 2.1 RATIO 2234) BILIRUBIN, TOTAL (test code = 1.1 MG/DL 2206) ALKALINE PHOSPHATASE (test 83 U/L code = 2204) AST (test code = 2218) 22 U/L ALT (test code = 2219) 37 U/L COMPREHENSIVE METABOLIC PANEL [ADDED]2019-12-03 00:00:00 Test Item Value Reference Range Interpretation Comments GLUCOSE (test code = 2217) 121 MG/DL BUN (test code = 2208) 14 MG/DL CREATININE (test code = 2214) 0.90 MG/DL eGFR AMER. (test code 102 ML/MIN/1.73 = 60337) eGFR NON- AMER. (test 88 ML/MIN/1.73 code = 74408) CALC BUN/CREAT (test code = 16 RATIO 2235) SODIUM (test code = 2231) 144 MEQ/L POTASSIUM (test code = 2228) 4.4 MEQ/L CHLORIDE (test code = 2215) 102 MEQ/L CARBON DIOXIDE (test code = 29 MEQ/L 2205) CALCIUM (test code = 2209) 10.0 MG/DL PROTEIN, TOTAL (test code = 7.8 G/DL 2228) ALBUMIN (test code = 2201) 5.3 G/DL CALC GLOBULIN (test code = 2.5 G/DL 2240) CALC A/G RATIO (test code = 2.1 RATIO 2234) BILIRUBIN, TOTAL (test code = 1.1 MG/DL 2206) ALKALINE PHOSPHATASE (test 83 U/L code = 2204) AST (test code = 2218) 22 U/L ALT (test code = 2219) 37 U/L LIPID [id number] 00:00:00 Test Item Value Reference Range Interpretation Comments CHOLESTEROL (test code = 2210) 191 MG/DL TRIGLYCERIDES (test code = 2232) 366 MG/DL HDL CHOLESTEROL (test code = 2220) 45 MG/DL CALC LDL CHOL (test code = 2237) 73 MG/DL RISK RATIO LDL/HDL (test code = 1.62 RATIO 2238) LIPID [id number] 00:00:00 Test Item Value Reference Range Interpretation Comments CHOLESTEROL (test code = 2210) 191 MG/DL TRIGLYCERIDES (test code = 2232) 366 MG/DL HDL CHOLESTEROL (test code = 2220) 45 MG/DL CALC LDL CHOL (test code = 2237) 73 MG/DL RISK RATIO LDL/HDL (test code = 1.62 RATIO 2238) COMPREHENSIVE METABOLIC PANEL [ADDED]2019-12-03 00:00:00 Test Item Value Reference Range Interpretation Comments GLUCOSE (test code = 2217) 121 MG/DL BUN (test code = 2208) 14 MG/DL CREATININE (test code = 2214) 0.90 MG/DL eGFR AMER. (test code 102 ML/MIN/1.73 = 24951) eGFR NON- AMER. (test 88 ML/MIN/1.73 code = 75130) CALC BUN/CREAT (test code = 16 RATIO 2235) SODIUM (test code = 2231) 144 MEQ/L POTASSIUM (test code = 2228) 4.4 MEQ/L CHLORIDE (test code = 2215) 102 MEQ/L CARBON DIOXIDE (test code = 29 MEQ/L 220) CALCIUM (test code = 2209) 10.0 MG/DL PROTEIN, TOTAL (test code = 7.8 G/DL 2228) ALBUMIN (test code = 2201) 5.3 G/DL CALC GLOBULIN (test code = 2.5 G/DL 2240) CALC A/G RATIO (test code = 2.1 RATIO 2234) BILIRUBIN, TOTAL (test code = 1.1 MG/DL 2206) ALKALINE PHOSPHATASE (test 83 U/L code = 2204) AST (test code = 2218) 22 U/L ALT (test code = 2219) 37 U/L COMPREHENSIVE METABOLIC PANEL [ADDED]2019-12-03 00:00:00 Test Item Value Reference Range Interpretation Comments GLUCOSE (test code = 2217) 121 MG/DL BUN (test code = 2208) 14 MG/DL CREATININE (test code = 2214) 0.90 MG/DL eGFR AMER. (test code 102 ML/MIN/1.73 = 55768) eGFR NON- AMER. (test 88 ML/MIN/1.73 code = 71764) CALC BUN/CREAT (test code = 16 RATIO 2235) SODIUM (test code = 2231) 144 MEQ/L POTASSIUM (test code = 2228) 4.4 MEQ/L CHLORIDE (test code = 2215) 102 MEQ/L CARBON DIOXIDE (test code = 29 MEQ/L 220) CALCIUM (test code = 2209) 10.0 MG/DL PROTEIN, TOTAL (test code = 7.8 G/DL 2228) ALBUMIN (test code = 2201) 5.3 G/DL CALC GLOBULIN (test code = 2.5 G/DL 2240) CALC A/G RATIO (test code = 2.1 RATIO 2234) BILIRUBIN, TOTAL (test code = 1.1 MG/DL 2206) ALKALINE PHOSPHATASE (test 83 U/L code = 2204) AST (test code = 2218) 22 U/L ALT (test code = 2219) 37 U/L LIPID [id number] 00:00:00 Test Item Value Reference Range Interpretation Comments CHOLESTEROL (test code = 2210) 191 MG/DL TRIGLYCERIDES (test code = 2232) 366 MG/DL HDL CHOLESTEROL (test code = 2220) 45 MG/DL CALC LDL CHOL (test code = 2237) 73 MG/DL RISK RATIO LDL/HDL (test code = 1.62 RATIO 2238) COMPREHENSIVE METABOLIC PANEL [ADDED]2019-12-03 00:00:00 Test Item Value Reference Range Interpretation Comments GLUCOSE (test code = 2217) 121 MG/DL BUN (test code = 2208) 14 MG/DL CREATININE (test code = 2214) 0.90 MG/DL eGFR AMER. (test code 102 ML/MIN/1.73 = 28268) eGFR NON- AMER. (test 88 ML/MIN/1.73 code = 15529) CALC BUN/CREAT (test code = 16 RATIO 2235) SODIUM (test code = 2231) 144 MEQ/L POTASSIUM (test code = 2228) 4.4 MEQ/L CHLORIDE (test code = 2215) 102 MEQ/L CARBON DIOXIDE (test code = 29 MEQ/L 220) CALCIUM (test code = 2209) 10.0 MG/DL PROTEIN, TOTAL (test code = 7.8 G/DL 2228) ALBUMIN (test code = 2201) 5.3 G/DL CALC GLOBULIN (test code = 2.5 G/DL 2240) CALC A/G RATIO (test code = 2.1 RATIO 2234) BILIRUBIN, TOTAL (test code = 1.1 MG/DL 2206) ALKALINE PHOSPHATASE (test 83 U/L code = 2204) AST (test code = 2218) 22 U/L ALT (test code = 2219) 37 U/L LIPID [id number] 00:00:00 Test Item Value Reference Range Interpretation Comments CHOLESTEROL (test code = 2210) 191 MG/DL TRIGLYCERIDES (test code = 2232) 366 MG/DL HDL CHOLESTEROL (test code = 2220) 45 MG/DL CALC LDL CHOL (test code = 2237) 73 MG/DL RISK RATIO LDL/HDL (test code = 1.62 RATIO 2238) LIPID PANEL [ADDED]2019-03-12 00:00:00 Test Item Value Reference Range Interpretation Comments CHOLESTEROL (test code = 2210) 160 MG/DL TRIGLYCERIDES (test code = 2232) 220 MG/DL HDL CHOLESTEROL (test code = 2220) 46 MG/DL CALC LDL CHOL (test code = 2237) 70 MG/DL RISK RATIO LDL/HDL (test code = 1.52 RATIO 2238) HEPATIC FUNCTION PANEL [ADDED]2019-03-12 00:00:00 Test Item Value Reference Range Interpretation Comments PROTEIN, TOTAL (test code = 2229) 7.4 G/DL ALBUMIN (test code = 2201) 5.0 G/DL BILIRUBIN, TOTAL (test code = 2207) 1.1 MG/DL BILIRUBIN, DIRECT (test code = 0.2 MG/DL 2021) ALKALINE PHOSPHATASE (test code = 60 U/L 2203) AST (test code = 2218) 18 U/L ALT (test code = 2219) 22 U/L HEPATIC FUNCTION PANEL [ADDED]2019-03-12 00:00:00 Test Item Value Reference Range Interpretation Comments PROTEIN, TOTAL (test code = 2229) 7.4 G/DL ALBUMIN (test code = 2201) 5.0 G/DL BILIRUBIN, TOTAL (test code = 2207) 1.1 MG/DL BILIRUBIN, DIRECT (test code = 0.2 MG/DL 2021) ALKALINE PHOSPHATASE (test code = 60 U/L 2203) AST (test code = 2218) 18 U/L ALT (test code = 2219) 22 U/L LIPID PANEL [ADDED]2019-03-12 00:00:00 Test Item Value Reference Range Interpretation Comments CHOLESTEROL (test code = 2210) 160 MG/DL TRIGLYCERIDES (test code = 2232) 220 MG/DL HDL CHOLESTEROL (test code = 2220) 46 MG/DL CALC LDL CHOL (test code = 2237) 70 MG/DL RISK RATIO LDL/HDL (test code = 1.52 RATIO 2238) LIPID PANEL [ADDED]2019-03-12 00:00:00 Test Item Value Reference Range Interpretation Comments CHOLESTEROL (test code = 2210) 160 MG/DL TRIGLYCERIDES (test code = 2232) 220 MG/DL HDL CHOLESTEROL (test code = 2220) 46 MG/DL CALC LDL CHOL (test code = 2237) 70 MG/DL RISK RATIO LDL/HDL (test code = 1.52 RATIO 2238) HEPATIC FUNCTION PANEL [ADDED]2019-03-12 00:00:00 Test Item Value Reference Range Interpretation Comments PROTEIN, TOTAL (test code = 2229) 7.4 G/DL ALBUMIN (test code = 2201) 5.0 G/DL BILIRUBIN, TOTAL (test code = 2207) 1.1 MG/DL BILIRUBIN, DIRECT (test code = 0.2 MG/DL 2021) ALKALINE PHOSPHATASE (test code = 60 U/L 2203) AST (test code = 2218) 18 U/L ALT (test code = 2219) 22 U/L HEPATIC FUNCTION PANEL [ADDED]2019-03-12 00:00:00 Test Item Value Reference Range Interpretation Comments PROTEIN, TOTAL (test code = 2229) 7.4 G/DL ALBUMIN (test code = 2201) 5.0 G/DL BILIRUBIN, TOTAL (test code = 2207) 1.1 MG/DL BILIRUBIN, DIRECT (test code = 0.2 MG/DL 2021) ALKALINE PHOSPHATASE (test code = 60 U/L 2203) AST (test code = 2218) 18 U/L ALT (test code = 2219) 22 U/L LIPID PANEL [ADDED]2019-03-12 00:00:00 Test Item Value Reference Range Interpretation Comments CHOLESTEROL (test code = 2210) 160 MG/DL TRIGLYCERIDES (test code = 2232) 220 MG/DL HDL CHOLESTEROL (test code = 2220) 46 MG/DL CALC LDL CHOL (test code = 2237) 70 MG/DL RISK RATIO LDL/HDL (test code = 1.52 RATIO 2238) HEPATIC FUNCTION PANEL [ADDED]2019-03-12 00:00:00 Test Item Value Reference Range Interpretation Comments PROTEIN, TOTAL (test code = 2229) 7.4 G/DL ALBUMIN (test code = 2201) 5.0 G/DL BILIRUBIN, TOTAL (test code = 2207) 1.1 MG/DL BILIRUBIN, DIRECT (test code = 0.2 MG/DL 2021) ALKALINE PHOSPHATASE (test code = 60 U/L 2203) AST (test code = 2218) 18 U/L ALT (test code = 2219) 22 U/L LIPID PANEL [ADDED]2019-03-12 00:00:00 Test Item Value Reference Range Interpretation Comments CHOLESTEROL (test code = 2210) 160 MG/DL TRIGLYCERIDES (test code = 2232) 220 MG/DL HDL CHOLESTEROL (test code = 2220) 46 MG/DL CALC LDL CHOL (test code = 2237) 70 MG/DL RISK RATIO LDL/HDL (test code = 1.52 RATIO 2238) LIPID [id number] 00:00:00 Test Item Value Reference Range Interpretation Comments CHOLESTEROL (test code = 2210) 292 MG/DL TRIGLYCERIDES (test code = 2232) 273 MG/DL HDL CHOLESTEROL (test code = 2220) 46 MG/DL CALC LDL CHOL (test code = 2237) 191 MG/DL RISK RATIO LDL/HDL (test code = 4.16 RATIO 2238) LIPID [id number] 00:00:00 Test Item Value Reference Range Interpretation Comments CHOLESTEROL (test code = 2210) 292 MG/DL TRIGLYCERIDES (test code = 2232) 273 MG/DL HDL CHOLESTEROL (test code = 2220) 46 MG/DL CALC LDL CHOL (test code = 2237) 191 MG/DL RISK RATIO LDL/HDL (test code = 4.16 RATIO 2238) LIPID [id number] 00:00:00 Test Item Value Reference Range Interpretation Comments CHOLESTEROL (test code = 2210) 292 MG/DL TRIGLYCERIDES (test code = 2232) 273 MG/DL HDL CHOLESTEROL (test code = 2220) 46 MG/DL CALC LDL CHOL (test code = 2237) 191 MG/DL RISK RATIO LDL/HDL (test code = 4.16 RATIO 2238) LIPID [id number] 00:00:00 Test Item Value Reference Range Interpretation Comments CHOLESTEROL (test code = 2210) 292 MG/DL TRIGLYCERIDES (test code = 2232) 273 MG/DL HDL CHOLESTEROL (test code = 2220) 46 MG/DL CALC LDL CHOL (test code = 2237) 191 MG/DL RISK RATIO LDL/HDL (test code = 4.16 RATIO 2238) LIPID [id number] 00:00:00 Test Item Value Reference Range Interpretation Comments CHOLESTEROL (test code = 2210) 292 MG/DL TRIGLYCERIDES (test code = 2232) 273 MG/DL HDL CHOLESTEROL (test code = 2220) 46 MG/DL CALC LDL CHOL (test code = 2237) 191 MG/DL RISK RATIO LDL/HDL (test code = 4.16 RATIO 2238) CBC W/AUTO [id number] 00:00:00 Test Item Value Reference Range Interpretation Comments WBC (test code = 1001) 7.7 K/UL RBC (test code = 1002) 5.04 M/UL HEMOGLOBIN (test code = 1003) 15.6 G/DL HEMATOCRIT (test code = 1004) 45.1 % MCV (test code = 1005) 89.5 fL MCH (test code = 1006) 31.0 PG MCHC (test code = 1007) 34.6 G/DL RDW (test code = 1038) 13.0 % NEUTROPHILS (test code = 1008) 68.0 % LYMPHOCYTES (test code = 1010) 22.1 % MONOCYTES (test code = 1011) 7.9 % EOSINOPHILS (test code = 1012) 1.3 % BASOPHILS (test code = 1013) 0.7 % PLATELET COUNT (test code = 1015) 281 K/UL LIPID [id number] 00:00:00 Test Item Value Reference Range Interpretation Comments CHOLESTEROL (test code = 2210) 287 MG/DL TRIGLYCERIDES (test code = 2232) 258 MG/DL HDL CHOLESTEROL (test code = 2220) 56 MG/DL CALC LDL CHOL (test code = 2237) 179 MG/DL RISK RATIO LDL/HDL (test code = 3.20 RATIO 2238) LIPID [id number] 00:00:00 Test Item Value Reference Range Interpretation Comments CHOLESTEROL (test code = 2210) 287 MG/DL TRIGLYCERIDES (test code = 2232) 258 MG/DL HDL CHOLESTEROL (test code = 2220) 56 MG/DL CALC LDL CHOL (test code = 2237) 179 MG/DL RISK RATIO LDL/HDL (test code = 3.20 RATIO 2238) COMPREHENSIVE METABOLIC [id number] 00:00:00 Test Item Value Reference Range Interpretation Comments GLUCOSE (test code = 2217) 97 MG/DL BUN (test code = 2208) 15 MG/DL CREATININE (test code = 2214) 0.89 MG/DL eGFR AMER. (test code 103 ML/MIN/1.73 = 58930) eGFR NON- AMER. (test 89 ML/MIN/1.73 code = 28881) CALC BUN/CREAT (test code = 17 RATIO 2235) SODIUM (test code = 2231) 143 MEQ/L POTASSIUM (test code = 2228) 4.4 MEQ/L CHLORIDE (test code = 2215) 100 MEQ/L CARBON DIOXIDE (test code = 28 MEQ/L 220) CALCIUM (test code = 2209) 9.9 MG/DL PROTEIN, TOTAL (test code = 7.9 G/DL 2228) ALBUMIN (test code = 2201) 5.2 G/DL CALC GLOBULIN (test code = 2.7 G/DL 2240) CALC A/G RATIO (test code = 1.9 RATIO 2234) BILIRUBIN, TOTAL (test code = 0.9 MG/DL 2206) ALKALINE PHOSPHATASE (test 66 U/L code = 2204) AST (test code = 2218) 18 U/L ALT (test code = 2219) 30 U/L COMPREHENSIVE METABOLIC [id number] 00:00:00 Test Item Value Reference Range Interpretation Comments GLUCOSE (test code = 2217) 97 MG/DL BUN (test code = 2208) 15 MG/DL CREATININE (test code = 2214) 0.89 MG/DL eGFR AMER. (test code 103 ML/MIN/1.73 = 84416) eGFR NON- AMER. (test 89 ML/MIN/1.73 code = 17081) CALC BUN/CREAT (test code = 17 RATIO 2235) SODIUM (test code = 2231) 143 MEQ/L POTASSIUM (test code = 2228) 4.4 MEQ/L CHLORIDE (test code = 2215) 100 MEQ/L CARBON DIOXIDE (test code = 28 MEQ/L 2206) CALCIUM (test code = 2209) 9.9 MG/DL PROTEIN, TOTAL (test code = 7.9 G/DL 9) ALBUMIN (test code = 2201) 5.2 G/DL CALC GLOBULIN (test code = 2.7 G/DL 2240) CALC A/G RATIO (test code = 1.9 RATIO 2234) BILIRUBIN, TOTAL (test code = 0.9 MG/DL 2206) ALKALINE PHOSPHATASE (test 66 U/L code = 2204) AST (test code = 2218) 18 U/L ALT (test code = 2219) 30 U/L CBC W/AUTO [id number] 00:00:00 Test Item Value Reference Range Interpretation Comments WBC (test code = 1001) 7.7 K/UL RBC (test code = 1002) 5.04 M/UL HEMOGLOBIN (test code = 1003) 15.6 G/DL HEMATOCRIT (test code = 1004) 45.1 % MCV (test code = 1005) 89.5 fL MCH (test code = 1006) 31.0 PG MCHC (test code = 1007) 34.6 G/DL RDW (test code = 1038) 13.0 % NEUTROPHILS (test code = 1008) 68.0 % LYMPHOCYTES (test code = 1010) 22.1 % MONOCYTES (test code = 1011) 7.9 % EOSINOPHILS (test code = 1012) 1.3 % BASOPHILS (test code = 1013) 0.7 % PLATELET COUNT (test code = 1015) 281 K/UL CBC W/AUTO [id number] 00:00:00 Test Item Value Reference Range Interpretation Comments WBC (test code = 1001) 7.7 K/UL RBC (test code = 1002) 5.04 M/UL HEMOGLOBIN (test code = 1003) 15.6 G/DL HEMATOCRIT (test code = 1004) 45.1 % MCV (test code = 1005) 89.5 fL MCH (test code = 1006) 31.0 PG MCHC (test code = 1007) 34.6 G/DL RDW (test code = 1038) 13.0 % NEUTROPHILS (test code = 1008) 68.0 % LYMPHOCYTES (test code = 1010) 22.1 % MONOCYTES (test code = 1011) 7.9 % EOSINOPHILS (test code = 1012) 1.3 % BASOPHILS (test code = 1013) 0.7 % PLATELET COUNT (test code = 1015) 281 K/UL CBC W/AUTO [id number] 00:00:00 Test Item Value Reference Range Interpretation Comments WBC (test code = 1001) 7.7 K/UL RBC (test code = 1002) 5.04 M/UL HEMOGLOBIN (test code = 1003) 15.6 G/DL HEMATOCRIT (test code = 1004) 45.1 % MCV (test code = 1005) 89.5 fL MCH (test code = 1006) 31.0 PG MCHC (test code = 1007) 34.6 G/DL RDW (test code = 1038) 13.0 % NEUTROPHILS (test code = 1008) 68.0 % LYMPHOCYTES (test code = 1010) 22.1 % MONOCYTES (test code = 1011) 7.9 % EOSINOPHILS (test code = 1012) 1.3 % BASOPHILS (test code = 1013) 0.7 % PLATELET COUNT (test code = 1015) 281 K/UL LIPID [id number] 00:00:00 Test Item Value Reference Range Interpretation Comments CHOLESTEROL (test code = 2210) 287 MG/DL TRIGLYCERIDES (test code = 2232) 258 MG/DL HDL CHOLESTEROL (test code = 2220) 56 MG/DL CALC LDL CHOL (test code = 2237) 179 MG/DL RISK RATIO LDL/HDL (test code = 3.20 RATIO 2238) LIPID [id number] 00:00:00 Test Item Value Reference Range Interpretation Comments CHOLESTEROL (test code = 2210) 287 MG/DL TRIGLYCERIDES (test code = 2232) 258 MG/DL HDL CHOLESTEROL (test code = 2220) 56 MG/DL CALC LDL CHOL (test code = 2237) 179 MG/DL RISK RATIO LDL/HDL (test code = 3.20 RATIO 2238) COMPREHENSIVE METABOLIC [id number] 00:00:00 Test Item Value Reference Range Interpretation Comments GLUCOSE (test code = 2217) 97 MG/DL BUN (test code = 2208) 15 MG/DL CREATININE (test code = 2214) 0.89 MG/DL eGFR AMER. (test code 103 ML/MIN/1.73 = 56939) eGFR NON- AMER. (test 89 ML/MIN/1.73 code = 29185) CALC BUN/CREAT (test code = 17 RATIO 2235) SODIUM (test code = 2231) 143 MEQ/L POTASSIUM (test code = 2228) 4.4 MEQ/L CHLORIDE (test code = 2215) 100 MEQ/L CARBON DIOXIDE (test code = 28 MEQ/L 2205) CALCIUM (test code = 2209) 9.9 MG/DL PROTEIN, TOTAL (test code = 7.9 G/DL 2228) ALBUMIN (test code = 2201) 5.2 G/DL CALC GLOBULIN (test code = 2.7 G/DL 2240) CALC A/G RATIO (test code = 1.9 RATIO 2234) BILIRUBIN, TOTAL (test code = 0.9 MG/DL 2206) ALKALINE PHOSPHATASE (test 66 U/L code = 2204) AST (test code = 2218) 18 U/L ALT (test code = 2219) 30 U/L COMPREHENSIVE METABOLIC [id number] 00:00:00 Test Item Value Reference Range Interpretation Comments GLUCOSE (test code = 2217) 97 MG/DL BUN (test code = 2208) 15 MG/DL CREATININE (test code = 2214) 0.89 MG/DL eGFR AMER. (test code 103 ML/MIN/1.73 = 12860) eGFR NON- AMER. (test 89 ML/MIN/1.73 code = 37647) CALC BUN/CREAT (test code = 17 RATIO 2235) SODIUM (test code = 2231) 143 MEQ/L POTASSIUM (test code = 2228) 4.4 MEQ/L CHLORIDE (test code = 2215) 100 MEQ/L CARBON DIOXIDE (test code = 28 MEQ/L 2205) CALCIUM (test code = 2209) 9.9 MG/DL PROTEIN, TOTAL (test code = 7.9 G/DL 2228) ALBUMIN (test code = 2201) 5.2 G/DL CALC GLOBULIN (test code = 2.7 G/DL 2240) CALC A/G RATIO (test code = 1.9 RATIO 2234) BILIRUBIN, TOTAL (test code = 0.9 MG/DL 2206) ALKALINE PHOSPHATASE (test 66 U/L code = 2204) AST (test code = 2218) 18 U/L ALT (test code = 2219) 30 U/L CBC W/AUTO [id number] 00:00:00 Test Item Value Reference Range Interpretation Comments WBC (test code = 1001) 7.7 K/UL RBC (test code = 1002) 5.04 M/UL HEMOGLOBIN (test code = 1003) 15.6 G/DL HEMATOCRIT (test code = 1004) 45.1 % MCV (test code = 1005) 89.5 fL MCH (test code = 1006) 31.0 PG MCHC (test code = 1007) 34.6 G/DL RDW (test code = 1038) 13.0 % NEUTROPHILS (test code = 1008) 68.0 % LYMPHOCYTES (test code = 1010) 22.1 % MONOCYTES (test code = 1011) 7.9 % EOSINOPHILS (test code = 1012) 1.3 % BASOPHILS (test code = 1013) 0.7 % PLATELET COUNT (test code = 1015) 281 K/UL CBC W/AUTO [id number] 00:00:00 Test Item Value Reference Range Interpretation Comments WBC (test code = 1001) 7.7 K/UL RBC (test code = 1002) 5.04 M/UL HEMOGLOBIN (test code = 1003) 15.6 G/DL HEMATOCRIT (test code = 1004) 45.1 % MCV (test code = 1005) 89.5 fL MCH (test code = 1006) 31.0 PG MCHC (test code = 1007) 34.6 G/DL RDW (test code = 1038) 13.0 % NEUTROPHILS (test code = 1008) 68.0 % LYMPHOCYTES (test code = 1010) 22.1 % MONOCYTES (test code = 1011) 7.9 % EOSINOPHILS (test code = 1012) 1.3 % BASOPHILS (test code = 1013) 0.7 % PLATELET COUNT (test code = 1015) 281 K/UL LIPID [id number] 00:00:00 Test Item Value Reference Range Interpretation Comments CHOLESTEROL (test code = 2210) 287 MG/DL TRIGLYCERIDES (test code = 2232) 258 MG/DL HDL CHOLESTEROL (test code = 2220) 56 MG/DL CALC LDL CHOL (test code = 2237) 179 MG/DL RISK RATIO LDL/HDL (test code = 3.20 RATIO 2238) COMPREHENSIVE METABOLIC [id number] 00:00:00 Test Item Value Reference Range Interpretation Comments GLUCOSE (test code = 2217) 97 MG/DL BUN (test code = 2208) 15 MG/DL CREATININE (test code = 2214) 0.89 MG/DL eGFR AMER. (test code 103 ML/MIN/1.73 = 65579) eGFR NON- AMER. (test 89 ML/MIN/1.73 code = 89119) CALC BUN/CREAT (test code = 17 RATIO 2235) SODIUM (test code = 2231) 143 MEQ/L POTASSIUM (test code = 2228) 4.4 MEQ/L CHLORIDE (test code = 2215) 100 MEQ/L CARBON DIOXIDE (test code = 28 MEQ/L 2205) CALCIUM (test code = 2209) 9.9 MG/DL PROTEIN, TOTAL (test code = 7.9 G/DL 2228) ALBUMIN (test code = 2201) 5.2 G/DL CALC GLOBULIN (test code = 2.7 G/DL 2239) CALC A/G RATIO (test code = 1.9 RATIO 2233) BILIRUBIN, TOTAL (test code = 0.9 MG/DL 2206) ALKALINE PHOSPHATASE (test 66 U/L code = 2204) AST (test code = 2218) 18 U/L ALT (test code = 2219) 30 U/L CBC W/AUTO [id number] 00:00:00 Test Item Value Reference Range Interpretation Comments WBC (test code = 1001) 7.7 K/UL RBC (test code = 1002) 5.04 M/UL HEMOGLOBIN (test code = 1003) 15.6 G/DL HEMATOCRIT (test code = 1004) 45.1 % MCV (test code = 1005) 89.5 fL MCH (test code = 1006) 31.0 PG MCHC (test code = 1007) 34.6 G/DL RDW (test code = 1038) 13.0 % NEUTROPHILS (test code = 1008) 68.0 % LYMPHOCYTES (test code = 1010) 22.1 % MONOCYTES (test code = 1011) 7.9 % EOSINOPHILS (test code = 1012) 1.3 % BASOPHILS (test code = 1013) 0.7 % PLATELET COUNT (test code = 1015) 281 K/UL CBC W/AUTO [id number] 00:00:00 Test Item Value Reference Range Interpretation Comments WBC (test code = 1001) 7.7 K/UL RBC (test code = 1002) 5.04 M/UL HEMOGLOBIN (test code = 1003) 15.6 G/DL HEMATOCRIT (test code = 1004) 45.1 % MCV (test code = 1005) 89.5 fL MCH (test code = 1006) 31.0 PG MCHC (test code = 1007) 34.6 G/DL RDW (test code = 1038) 13.0 % NEUTROPHILS (test code = 1008) 68.0 % LYMPHOCYTES (test code = 1010) 22.1 % MONOCYTES (test code = 1011) 7.9 % EOSINOPHILS (test code = 1012) 1.3 % BASOPHILS (test code = 1013) 0.7 % PLATELET COUNT (test code = 1015) 281 K/UL
[2023-08-13] MEDS ORDERED: IBUPROFEN 400 MG TAB ONE (16:37)
[2023-08-13 17:05] LABS: Absolute Lymphocytes (CBC) 1.8 K/uL (0.7-4.9); Hematocrit 37.5 % (39.6-49.0); Lymphocytes % 31.8 % (15.3-44.8); MCV 85.6 fL (80-100); Platelets 265 thou/uL (152-406); RBC Red Blood Cell Count 4.38 M/uL (4.33-5.43)
[2023-08-13 17:21] LABS: Albumin 3.8 g/dL (3.4-5.0); Bilirubin Total 0.8 mg/dL (0.2-1.0); Potassium 4.2 mEq/L (3.5-5.1); Protein, Total 7.7 g/dL (6.4-8.2)
--- NOTE | 2023-08-13 20:43 | RAD REPORT ---
EXAM DESCRIPTION: CT - Chest Abdomen Pelvis W Cont - 08/13/2023 7:44 pm CLINICAL HISTORY: back pain. History of malignancy COMPARISON: No comparisons TECHNIQUE: Thin axial CT images of the chest, abdomen, pelvis, performed following intravenous admin istration of 100 mL Isovue-300. Multiplanar reformats were generated and reviewed. All CT scans are performed using dose optimization technique as appropriate and may include automated exposure control or mA/KV adjustment according to patient size. FINDINGS: Motion artifact somewhat limits evaluation particularly at the lower abdomen. The lungs ar e clear.No pleural or pericardial effusion.No intrathoracic adenopathy. The liver, spleen, pancreas, adrenal glands and kidneys are within normal limits. Long segment apparent wall thickening of the proximal sigmoid colon. Nondistention limits evaluation. Colonic diverticulosis. No bowel obstruction, free air, free fluid or abscess. Small fat containing umbilical hernia. Numerous enlarged retroperitoneal and iliac chain lymph nodes, the largest. On the left measuring 1.7 cm in short axis. Innumerable osseous metastases with variable degrees of sclerosis as well as some areas of lytic guy ge. Wedge compression deformities at T10 and to lesser degree at T9, with posterior extra osseous com ponents most pronounced at T10, resulting in degrees of spinal canal stenosis, with the midline spina l canal AP diameter measuring up to 6 millimeter at that level. Similar extraosseous component suspec amos along body of L3 posteriorly, with a degree of canal narrowing, not well evaluated. IMPRESSION: Extensive osseous metastatic disease with lytic as well as sclerotic components. Pathologic wedge compression deformities at T9 and T10, with extra - osseous soft tissue components e xtending posteriorly, contributing to degrees of narrowing of the spinal canal. Similar extraosseous component posteriorly at L3 also narrows the spinal canal. These findings would be better evaluated b y contrast-enhanced MRI of the thoracolumbar spine. Retroperitoneal and bilateral iliac chain malignant/metastatic enlarged lymph nodes. Long segment of apparent wall thickening of the proximal sigmoid colon, could relate to nondistention and/or sequelae of diverticulitis, favored to be chronic. Possibility of underlying mucosal malignan cy cannot be entirely excluded. Motion artifact at that level limits evaluation. The findings were communicated to Tim Talavera on 08/13/2023 at 20:34 hours.
--- NOTE | 2023-08-13 21:04 | EDPHYS ---
Physician Documentation [facility] Name: Arthur Plaza Age: 72 yrs Sex: Male : 1950 Arrival Date: 08/13/2023 Time: 15:17 Bed 20 Private MD: ED Physician Tim Talavera HPI: 08/13 19:42 This 72 yrs old Male presents to ER via Wheelchair with complaints of Sent by rt Dr Jo, Leg Pain. 19:42 Patient was sent to the ED from Dr. Jo for concern of cord compression. Patient was rt due to start cancer treatments, stated that he has numbness of both of his legs. Reports that he cannot walk. Denies any pain to his legs but does report a back pain. Denies other acute complaints at this time, symptoms are moderate in severity, no other aggravating or alleviating factors.. Historical: - Allergies: 16:17 No Known Allergies; nj1 - PMHx: 16:17 Chronic back pain; nj1 - Immunization history:: Client reports receiving the 2nd dose of the Covid vaccine. - Social history:: Smoking status: Patient denies any tobacco usage or history of. - Family history:: not pertinent. ROS: 19:42 Back: Positive for pain at rest, pain with movement, rt 19:42 Neuro: Positive for numbness, weakness, 20:10 Constitutional: Negative for fever, chills, and weight loss, Cardiovascular: Negative rt for chest pain, palpitations, and edema, Respiratory: Negative for shortness of breath, cough, wheezing, and pleuritic chest pain, Abdomen/GI: Negative for abdominal pain, nausea, vomiting, diarrhea, and constipation, Skin: Negative for injury, rash, and discoloration, Psych: Negative for depression, anxiety, suicide ideation, homicidal ideation, and hallucinations, Exam: 19:44 Constitutional: This is a well developed, well nourished patient who is awake, alert, rt and in no acute distress. Head/Face: Normocephalic, atraumatic. Chest/axilla: Normal chest wall appearance and motion. Nontender with no deformity. No lesions are appreciated. Cardiovascular: Regular rate and rhythm with a normal S1 and S2. No gallops, murmurs, or rubs. Normal PMI, no JVD. No pulse deficits. Respiratory: Lungs have equal breath sounds bilaterally, clear to auscultation and percussion. No rales, rhonchi or wheezes noted. No increased work of breathing, no retractions or nasal flaring. Abdomen/GI: Soft, non-tender, with normal bowel sounds. No distension or tympany. No guarding or rebound. No evidence of tenderness throughout. Skin: Warm, dry with normal turgor. Normal color with no rashes, no lesions, and no evidence of cellulitis. Psych: Awake, alert, with orientation to person, place and time. Behavior, mood, and affect are within normal limits. 19:44 Neuro: Numbness to the bilateral lower extremities diffusely, strength seems to be mostly intact., Vital Signs: 16:14 BP 133 / 76; Pulse 76; Resp 18; Temp 98.6(O); Pulse Ox 95% on R/A; Weight 80.29 kg; nj1 Height 5 ft. 8 in. ; 20:06 BP 135 / 80; Pulse 71; Resp 16; Pulse Ox 97% on R/A; jb4 21:15 BP 145 / 82; Pulse 62; Resp 16; Pulse Ox 92% on R/A; jb4 22:15 BP 145 / 84; Pulse 65; Resp 16; Pulse Ox 96% on R/A; jb4 23:15 BP 144 / 87; Pulse 62; Resp 16; Pulse Ox 95% on R/A; jb4 16:14 Body Mass Index 26.91 (80.29 kg, 172.72 cm) nj1 MDM: 16:25 Patient medically screened. rt 21:04 Differential diagnosis: Pathologic fracture, cord compression, tumor burden. Data rt reviewed: vital signs, nurses notes, lab test result(s), radiologic studies. Consideration of Admission/Observation Patient quires transfer for higher level of care. Management of patient was discussed with the following: Counter Sales Person: Discussed with the patient's oncologist, primary malignancy is not known yet.. I considered the following discharge prescriptions or medication management in the emergency department Medications were administered in the Emergency Department. See MAR. Counseling: I had a detailed discussion with the patient and/or guardian regarding the historical points, exam findings, and any diagnostic results supporting the discharge/admit diagnosis, lab results, radiology results, the need to transfer to another facility. Response to treatment: There is no appreciated change of the patient's symptoms at this time. 08/13 16:25 Order name: CBC with Diff; Complete Time: 17:22 rt 08/13 16:25 Order name: CMP; Complete Time: 17:22 rt 08/13 18:03 Order name: CT Chest, Abdomen, Pelvis - W/Contrast; Complete Time: 20:51 rt Administered Medications: 16:26 Drug: Ibuprofen PO 800 mg PO once Route: PO; nj1 21:29 Drug: Decadron - Dexamethasone IVP 10 mg IVP once Route: IVP; Site: right antecubital; jb4 21:58 Drug: NS 0.9% IV 1000 ml IV at 1 bolus Per protocol; 1000 mL bolus Route: IV; Rate: 1 jb4 bolus; Site: right antecubital; 21:58 Drug: Famotidine IVP 20 mg IVP once; dilute with 10 mL 0.9% NaCl; give over 2 minutes jb4 Route: IVP; Site: right antecubital; 21:58 Drug: Piperacillin-Tazobactam IVPB 3.375 grams IVPB once over 60 mins; (mix in NS 100 jb4 mL) Route: IVPB; Infused Over: 60 mins; Site: right antecubital; 23:13 Drug: NS 0.9% IV 1000 ml IV at 125 ml/hr continuous Route: IV; Rate: 125 ml/hr; Site: jb4 right antecubital; Disposition Summary: 08/13/23 21:03 Transfer Ordered Notes: Transfer Location: [facility] rt Reason: Higher level of care rt Condition: Fair rt Problem: new rt Symptoms: are unchanged rt Accepting Physician: Dr. cotter, neuro(08/14/23 00:24) jb4 Diagnosis - Pathologic fractures of T9, T10, L3 with cord impingement rt Forms: - Medication Reconciliation Form rt - SBAR form rt Signatures: Dispatcher [employer] EDCabrera Petty MD MD cha Bryson, James, RN RN jb4 Tim Talavera MD MD rt Mey Dee rv1 Glenna Hernandes, TATIANA RN nj1 Corrections: (The following items were deleted from the chart) 21:18 21:03 Dr. rt galloway 22:22 21:18 Dr. cotter neuro nilesh rv1 22:22 22:22 Dr. cotter, neuro rv1 rv1 08/14 00:24 08/13 22:22 Dr. cotter, neuro rv1 jb4
--- NOTE | 2023-08-13 21:04 | ER ---
Nurse's Notes [facility] Name: Arthur Plaza Age: 72 yrs Sex: Male : 1950 Arrival Date: 08/13/2023 Time: 15:17 Bed 20 Private MD: Diagnosis: Pathologic fractures of T9, T10, L3 with cord impingement Presentation: 08/13 16:14 Chief complaint: Patient states: Sent by oncologist for imaging to ro cord compression. nj1 Coronavirus screen: Vaccine status: Patient reports receiving the 2nd dose of the covid vaccine. Ebola Screen: Patient denies travel to an Ebola-affected area in the 21 days before illness onset. Initial Sepsis Screen: Does the patient meet any 2 criteria? No. Patient's initial sepsis screen is negative. Does the patient have a suspected source of infection? No. Patient's initial sepsis screen is negative. Risk Assessment: Do you want to hurt yourself or someone else? Patient reports no desire to harm self or others. Onset of symptoms was August 13, 2023. 16:14 Method Of Arrival: Wheelchair nj 16:14 Acuity: GAUTAM 3 nj1 Historical: - Allergies: 16:17 No Known Allergies; nj1 - PMHx: 16:17 Chronic back pain; nj1 - Immunization history:: Client reports receiving the 2nd dose of the Covid vaccine. - Social history:: Smoking status: Patient denies any tobacco usage or history of. - Family history:: not pertinent. Screenin:10 [facility] ED Fall Risk Assessment (Adult) History of falling in the last 3 months, ko1 including since admission No falls in past 3 months (0 pts) Confusion or Disorientation No (0 pts) Intoxicated or Sedated No (0 pts) Impaired Gait No (0 pts) Mobility Assist Device Used No (0 pt) Altered Elimination No (0 pt) Score/Fall Risk Level 0 - 2 = Low Risk Oriented to surroundings, Maintained a safe environment, Educated pt \T\ family on fall prevention, incl call for assistance when getting out of bed, Assessed \T\ reinforced patient's understanding of fall precautions, Provided non-skid footwear, Hourly rounding (assess needs \T\ fall precautionary measures) done, Used ambulatory aids as needed (educated on \T\ assisted with), Used gait belt as appropriate. Abuse screen: Denies threats or abuse. Denies injuries from another. Nutritional screening: No deficits noted. Tuberculosis screening: No symptoms or risk factors identified. Assessment: 18:09 General: Appears in no apparent distress. uncomfortable, Behavior is calm, cooperative, ko1 appropriate for age. Pain:. Neuro: No deficits noted. Cardiovascular: No deficits noted. Respiratory: No deficits noted. GI: No deficits noted. : No deficits noted. EENT: No deficits noted. Derm: No deficits noted. Musculoskeletal: No deficits noted. 20:06 Reassessment: Patient appears in no apparent distress at this time. Patient and/or jb4 family updated on plan of care and expected duration. Pain level reassessed. Patient is alert, oriented x 3, equal unlabored respirations, skin warm/dry/pink. 21:00 Reassessment: Patient appears in no apparent distress at this time. Patient and/or jb4 family updated on plan of care and expected duration. Pain level reassessed. Patient is alert, oriented x 3, equal unlabored respirations, skin warm/dry/pink. 22:00 Reassessment: Patient appears in no apparent distress at this time. Patient and/or jb4 family updated on plan of care and expected duration. Pain level reassessed. Patient is alert, oriented x 3, equal unlabored respirations, skin warm/dry/pink. 23:00 Reassessment: Patient appears in no apparent distress at this time. Patient and/or jb4 family updated on plan of care and expected duration. Pain level reassessed. Patient is alert, oriented x 3, equal unlabored respirations, skin warm/dry/pink. 08/14 00:23 Reassessment: Patient appears in no apparent distress at this time. Patient and/or jb4 family updated on plan of care and expected duration. Pain level reassessed. Patient is alert, oriented x 3, equal unlabored respirations, skin warm/dry/pink. Vital Signs: 08/13 16:14 BP 133 / 76; Pulse 76; Resp 18; Temp 98.6(O); Pulse Ox 95% on R/A; Weight 80.29 kg; nj1 Height 5 ft. 8 in. ; 20:06 BP 135 / 80; Pulse 71; Resp 16; Pulse Ox 97% on R/A; jb4 21:15 BP 145 / 82; Pulse 62; Resp 16; Pulse Ox 92% on R/A; jb4 22:15 BP 145 / 84; Pulse 65; Resp 16; Pulse Ox 96% on R/A; jb4 23:15 BP 144 / 87; Pulse 62; Resp 16; Pulse Ox 95% on R/A; jb4 16:14 Body Mass Index 26.91 (80.29 kg, 172.72 cm) nj1 ED Course: 15:20 Patient arrived in ED. rg4 15:36 Tim Talavera MD is Attending Physician. rt 16:16 Triage completed. nj1 16:18 Arm band placed on right wrist. nj1 16:55 Inserted saline lock: 20 gauge in right antecubital area, using aseptic technique. hb Blood collected. 16:57 CMP Sent. hb 16:57 CBC with Diff Sent. hb 18:08 Fransisca Evans, RN is Primary Nurse. ko1 18:10 Patient has correct armband on for positive identification. Bed in low position. Call ko1 light in reach. Side rails up X 1. Provided Education on: na. Pulse ox on. NIBP on. Door closed. Noise minimized. Lights dimmed. Warm blanket given. 19:45 CT Chest, Abdomen, Pelvis - W/Contrast In Process Unspecified. EDMS 21:36 Initiated transfer with Inés at [facility]. rv1 22:14 [facility] declined due to capacity. rv1 22:16 Initiated transfer with Zeina at [facility]. rv1 22:39 [facility] declined due to capacity. rv1 22:40 Initiated transfer with Pati at [facility]. rv1 23:[address] Cano to [facility] ER. rv1 08/14 00:23 No provider procedures requiring assistance completed. Patient transferred, IV remains jb4 in place. Administered Medications: 08/13 16:26 Drug: Ibuprofen PO 800 mg PO once Route: PO; nj1 21:29 Drug: Decadron - Dexamethasone IVP 10 mg IVP once Route: IVP; Site: right antecubital; jb4 21:58 Drug: NS 0.9% IV 1000 ml IV at 1 bolus Per protocol; 1000 mL bolus Route: IV; Rate: 1 jb4 bolus; Site: right antecubital; 21:58 Drug: Famotidine IVP 20 mg IVP once; dilute with 10 mL 0.9% NaCl; give over 2 minutes jb4 Route: IVP; Site: right antecubital; 21:58 Drug: Piperacillin-Tazobactam IVPB 3.375 grams IVPB once over 60 mins; (mix in NS 100 jb4 mL) Route: IVPB; Infused Over: 60 mins; Site: right antecubital; 23:13 Drug: NS 0.9% IV 1000 ml IV at 125 ml/hr continuous Route: IV; Rate: 125 ml/hr; Site: jb4 right antecubital; Outcome: 21:03 ER care complete, transfer ordered by . rt 08/14 00:23 Transferred by ground EMS to [facility], [facility], Transfer form completed. jb4 X-rays sent w/ patient. Condition: stable Discharge instructions given to patient, family, Instructed on the need for transfer, Demonstrated understanding of instructions, 00:24 Patient left the ED. jb4 Signatures: Dispatcher [employer] EDMS Gisela Fernandez RN Janis Flores rg4 Mahesh Foreman RN RN jb4 Fransisca Evans RN RN ko1 Tim Talavera MD MD rt Mey [place] 1 Glenna Hernandes, TATIANA RN nj1 Corrections: (The following items were deleted from the chart) 08/13 23:24 22:16 Initiated with Zeina at [facility] rv1 08/14 00:24 00:23 Transferred by ground EMS jb4 jb4
[2023-08-13] MEDS ORDERED: dexAMETHasone 10 MG/ML VIAL ONE (21:29)
[2023-08-13] MEDS ORDERED: NA CHLORIDE 0.9% 100 ML ONE (21:53)
[2023-08-13] MEDS ORDERED: PIPERACIL/TAZO 3.375 GM VIAL IV ONE (21:53)
[2023-08-13] MEDS ORDERED: NA CHLORIDE 0.9% 2,000 ML ONE (21:53)
[2023-08-13] MEDS ORDERED: FAMOTIDINE 20 MG/2 ML VIAL IV ONE (21:53)
[2023-08-14 01:37] VITALS: TEMP 98.6
[2023-08-14 01:42] VITALS: BP 144/87; O2SAT 95
== END 2023-08-14 00:24 | disposition short-term general hospital (02) ==
LOC: ER 15:17
DX: M84.48XA Pathological fracture, other site, initial encounter for fracture (principal)
CPT/HCPCS: 85025; 36415; 80053; 71260; 74177; 96375; 96374; 99285; Q9967; J2543; J1100; J7030